=== PATIENT | female | born 1945 | race Caucasian/White ===

== ENCOUNTER 2023-11-02 15:01 | Emergency (ER) | payer MEDICARE, OTHER, SELFPAY ==
[2023-11-02] VITALS (7 sets, daily range): BP systolic 153–169; BP diastolic 75–100; BMI 24.2
--- NOTE | 2023-11-02 15:07 | ED.GENMED ---
History of Present Illness
General
Chief Complaint: Abdominal Symptoms
Time Seen by Provider: 11/02/23 15:07
History of Present Illness
History of Present Illness:
HPI: Patient sent by Dr. Richardson for evaluation. See note below. The patient currently has no complaints and feels 'fine'. She denies vomiting. However she clearly is a limited/unreliable historian.
EXAM:
GENERAL: The patient appears generally weak and debilitated
HEENT: Slightly dry oral mucosa
CARDIOVASCULAR: No murmurs, normal heart rate and rhythm, No chest wall tenderness
PULMONARY: No respiratory distress, breath sounds are clear and equal
ABDOMEN: Soft with no peritoneal signs, no significant tenderness, feeding tube noted
NEUROLOGIC: Equally poor strength all extremities, she is awake with eyes open
PSYCHIATRIC: The patient has limited insight and judgment and is an unreliable historian
EXTREMITIES: Nontender, no edema, markedly decreased ranked in the lower extremities with chronic appearing deformity at the ankles bilaterally
SKIN: Scattered macules noted more so around the face
ED COURSE:
3:20 PM: I initially evaluated patient
NUMBER AND COMPLEXITY OF PROBLEMS ADDRESSED AT THE ENCOUNTER
� Chronic conditions affecting care: Hemorrhagic CVA with left-sided hemiplegia, A-fib, high blood pressure, dysphagia/has feeding tube, history of alcoholic gastritis
� Acute Exacerbation and/or Progression of Chronic Illness: This is an acute problem
� Differential Diagnosis includes: Bowel obstruction, viral syndrome, pancreatitis, exacerbation of gastritis
AMOUNT AND/OR COMPLEXITY OF DATA TO BE REVIEWED AND ANALYZED
� I performed an independent evaluation of and my interpretation is:
EKG:
CT: CT imaging shows signs of constipation, feeding tube in place, pleural effusion noted
X-rays:
Laboratory Studies: Sodium today is improved to 134, white count 12.9
Other:
� Review of other/old records: The patient was here in 2019 with a elbow fracture
� Clinical information was obtained by an independent historian: Dr. Richardson
� Prescriptions/Medications Considered but not given:
� Further testing considered but not performed:
RISK OF COMPLICATIONS AND/OR MORBIDITY OR MORTALITY OF PATIENT MANAGEMENT
� Social determinants of health affecting care: Comes in from [facility]
� Discussion with other providers: I reviewed the note from Dr. Balta Richardson evaluated patient at [place]. She had retching after abdominal palpation today. She recently was on hydrochlorothiazide but was stopped due to
hyponatremia. I also notified Dr. Richardson about the workup today
� Escalation of care including admission/observation vs risk of discharge considered: The patient appears chronically ill. She did not have any significant tenderness on my initial evaluation. As I attempted to roll her to do a
rectal examination for evaluation of rectal fecal impaction, she did spontaneously have a bowel movement
Past History
Past History
ED Past Medical History: CAD
Phy Exam
Physical Exam
Physical Exam:
See HPI
Course
Orders/Labs/Results
Orders:
Orders
11/02/23 15:12
0.9% Sodium Chloride 500 ml [Nss] 500 ml IV BOLUS
11/02/23 15:23
Complete Blood Count/With Diff Urgent
Comprehensive Metabolic Panel Urgent
Lipase Urgent
11/02/23 15:27
CT Abd/pelvis W Iv Cont Urgent
Comment:
Reason For Exam: abd pain resolved vomiting
11/02/23 15:31
Famotidine [Pepcid] 20 mg IV NOW STA
Abnormal Lab Results
11/02/23
15:23
WBC 12.9 H 10^3/uL
(4.8-10.8)
MCV 79.6 L fL
(81.0-99.0)
MCH 26.7 L pg
(27.0-31.0)
RDW 18.9 H %
(11.5-14.5)
Abs Immat Gran (auto) 0.1 H 10^3/uL
(0-0.05)
Absolute Neuts (auto) 10.1 H 10^3/uL
(1.4-6.5)
Absolute Monos (auto) 0.9 H 10^3/uL
(0.1-0.6)
Neutrophils % 78.4 H %
(42.2-75.2)
Lymphocytes % 12.4 L %
(20.5-51.1)
Sodium 134 L mmol/L
(135-145)
Creatinine 0.4 L mg/dL
(0.6-1.0)
Alkaline Phosphatase 151 H U/L
(38-126)
11/02/23 15:23
11/02/23 15:23
Vital Signs
Initial and Last Documented VS:
Initial Vital Signs
Temp Pulse Resp BP Pulse Ox
100.2 F 91 24 169/91 95
11/02/23 15:09 11/02/23 15:09 11/02/23 15:09 11/02/23 15:09 11/02/23 15:09
Last Documented Vital Signs
Temp Pulse Resp BP Pulse Ox
100.2 F 89 23 161/86 97
11/02/23 15:09 11/02/23 18:15 11/02/23 18:15 11/02/23 18:00 11/02/23 18:15
*Critical Care Note
Total Time (30-74mins, 75-104mins- exclusive of procedures): Not Applicable
ED Attending Note
-
Portions of this chart may have been created with voice recognition software.� Occasional wrong word or��sound alike� substitutions may have occurred due to the inherent limitations of voice recognition software.
Discharge Plan
Departure
Patient Disposition: Home (Routine Discharge)
Date of Disposition: 11/02/23
Time of Disposition: 18:38
Patient with high blood pressure during this ER visit?: Yes
Discharge Problem:
Constipation
Instructions: Constipation, Adult (DC)
Referrals:
Balta Richardson MD [Family Provider] -
Activity Restrictions/Additional Instructions:
The CAT scan of the abdomen and pelvis showed constipation and showed that the G-tube is in place. She did have a bowel movement while in the ED while I attempted to disimpact her. Sodium level is improved now up to 134. White count slightly
elevated 12.9.
Interventions
Interventions:
*Risk Screen - Suicide Last Done: 11/02/23 17:07
*General Assessment Last Done: 11/02/23 17:07
*Neglect/Abuse Screening Last Done: 11/02/23 17:07
*ED COVID-19 Vaccine History Last Done: 11/02/23 15:17
DT-Dgbike-Peeyuvdgxd Assessment Last Done: 11/02/23 17:07
[2023-11-02] MEDS: NSS 500 IV (15:24)
[2023-11-02 15:33] LABS: % Basophils 0.6 % (0-2); % Eosinophils 1.6 % (0-6); % Immature Granulocytes 0.4 % (0-0.5); % Lymphocytes 12.4 % (20.5-51.1); % Monocytes 6.6 % (1.7-9.3); % Neutrophils 78.4 % (42.2-75.2); Absolute Basophils 0.1 10^3/uL (0-0.2); Absolute Eosinophils 0.2 10^3/uL (0-0.7); Absolute Immature Granulocytes 0.1 10^3/uL (0-0.05); Absolute Lymphocytes 1.6 10^3/uL (1.2-3.4); Absolute Monocytes 0.9 10^3/uL (0.1-0.6); Absolute Neutrophils 10.1 10^3/uL (1.4-6.5); Hematocrit 42.9 % (37.0-47.0); Hemoglobin 14.4 g/dL (12.0-16.0); Mean Corp Hgb Conc. 33.6 g/dL (33.0-37.0); Mean Corpuscular Hgb 26.7 pg (27.0-31.0); Mean Corpuscular Volume 79.6 fL (81.0-99.0); Mean Platelet Volume 9.6 fL (7.4-10.4); Nucleated Red Blood Cells % 0 %; Platelet Count 360 10^3/uL (130-400); Red Blood Cell Count 5.39 10^6/uL (4.20-5.40); Red Cell Dist. Width 18.9 % (11.5-14.5); White Blood Cell Count 12.9 10^3/uL (4.8-10.8)
[2023-11-02 15:44] LABS: ALT (SGPT) 20 U/L (0-35); AST (SGOT) 26 U/L (14-36); Albumin 3.9 g/dl (3.5-5.0); Alkaline Phosphatase 151 U/L (38-126); Blood Urea Nitrogen 14 mg/dl (7-17); Calcium 9.7 mg/dl (8.4-10.2); Carbon Dioxide 29 mmol/L (22-30); Chloride 98 mmol/L (98-107); Estimated Creatinine Clearance 59 ml/min; Glucose 73 mg/dl (70-99); Lipase 151 U/L (23-300); Potassium 4.1 mmol/L (3.5-5.1); Sodium 134 mmol/L (135-145); Total Bilirubin 0.9 mg/dl (0.2-1.3); Total Protein 7.4 g/dl (6.3-8.2); eGFR > 60.00
[2023-11-02] MEDS: PEPCID 20 MG IV (17:02)
== END 2023-11-02 21:51 | disposition home or self-care (01) ==
LOC: EMR 15:01
PROVIDERS: EMERGENCY PHYSICIAN Emergency Medicine; FAMILY PHYSICIAN Family Medicine
DX: K59.00 Constipation, unspecified (principal); I48.91 Unspecified atrial fibrillation; R03.0 Elevated blood-pressure reading, without diagnosis of hypertension
CPT/HCPCS: 99285; 96374; 96361; 74177; 80053; 83690; 85025; Q9967

== ENCOUNTER → 2023-11-17 13:22 | Outpatient (REF) | payer MEDICARE, OTHER, SELFPAY ==
[2023-11-17 13:54] LABS: Blood Urea Nitrogen 18 mg/dl (7-17); Calcium 9.1 mg/dl (8.4-10.2); Carbon Dioxide 28 mmol/L (22-30); Chloride 95 mmol/L (98-107); Glucose 94 mg/dl (70-99); Potassium 4.6 mmol/L (3.5-5.1); Sodium 132 mmol/L (135-145); eGFR > 60.00
== END ==
LOC: OLABWHC 13:22
PROVIDERS: ATTENDING PHYSICIAN Family Medicine
DX: E44.0 Moderate protein-calorie malnutrition (principal); E63.9 Nutritional deficiency, unspecified
CPT/HCPCS: 36415; 80048

== ENCOUNTER → 2023-12-15 13:05 | Outpatient (REF) | payer MEDICARE, OTHER, SELFPAY ==
[2023-12-15 13:56] LABS: Hematocrit 41.1 % (37.0-47.0); Hemoglobin 13.6 g/dL (12.0-16.0); Mean Corp Hgb Conc. 33.1 g/dL (33.0-37.0); Mean Corpuscular Hgb 27.3 pg (27.0-31.0); Mean Corpuscular Volume 82.4 fL (81.0-99.0); Mean Platelet Volume 11.2 fL (7.4-10.4); Platelet Count 346 10^3/uL (130-400); Red Blood Cell Count 4.99 10^6/uL (4.20-5.40); Red Cell Dist. Width 17.1 % (11.5-14.5); White Blood Cell Count 11.2 10^3/uL (4.8-10.8)
[2023-12-15 14:15] LABS: NT-proBNP 1490 pg/ml
[2023-12-15 14:18] LABS: Blood Urea Nitrogen 21 mg/dl (7-17); Calcium 9.1 mg/dl (8.4-10.2); Carbon Dioxide 24 mmol/L (22-30); Chloride 100 mmol/L (98-107); Glucose 75 mg/dl (70-99); Potassium 4.9 mmol/L (3.5-5.1); Sodium 131 mmol/L (135-145); eGFR > 60.00
== END ==
LOC: OLABWHC 13:05
PROVIDERS: ATTENDING PHYSICIAN Family Medicine
DX: I50.9 Heart failure, unspecified (principal)
CPT/HCPCS: 36415; 80048; 83880; 85027

== ENCOUNTER → 2023-12-25 11:33 | Outpatient (REF) | payer MEDICARE, OTHER, SELFPAY ==
[2023-12-25 12:27] LABS: Hematocrit 43.2 % (37.0-47.0); Hemoglobin 13.9 g/dL (12.0-16.0); Mean Corp Hgb Conc. 32.2 g/dL (33.0-37.0); Mean Corpuscular Volume 86.9 fL (81.0-99.0); Mean Platelet Volume 11.1 fL (7.4-10.4); Platelet Count 334 10^3/uL (130-400); Red Blood Cell Count 4.97 10^6/uL (4.20-5.40); Red Cell Dist. Width 16.6 % (11.5-14.5); White Blood Cell Count 10.8 10^3/uL (4.8-10.8)
[2023-12-25 13:02] LABS: Blood Urea Nitrogen 19 mg/dl (7-17); Carbon Dioxide 27 mmol/L (22-30); Chloride 100 mmol/L (98-107); Glucose 85 mg/dl (70-99); Potassium 4.1 mmol/L (3.5-5.1); Sodium 133 mmol/L (135-145); eGFR > 60.00
== END ==
LOC: OLABWHC 11:33
PROVIDERS: ATTENDING PHYSICIAN Family Medicine
DX: E44.0 Moderate protein-calorie malnutrition (principal); G93.40 Encephalopathy, unspecified; E63.9 Nutritional deficiency, unspecified
CPT/HCPCS: 36415; 80048; 85027

== ENCOUNTER → 2023-12-29 10:56 | Outpatient (REF) | payer MEDICARE, OTHER, SELFPAY ==
[2023-12-29 11:26] LABS: Blood Urea Nitrogen 19 mg/dl (7-17); Carbon Dioxide 29 mmol/L (22-30); Chloride 96 mmol/L (98-107); Glucose 78 mg/dl (70-99); Lipase 138 U/L (23-300); Potassium 4.3 mmol/L (3.5-5.1); Sodium 132 mmol/L (135-145); eGFR > 60.00
== END ==
LOC: OLABWHC 10:56
PROVIDERS: ATTENDING PHYSICIAN Family Medicine
DX: I50.9 Heart failure, unspecified (principal); K21.00 Gastro-esophageal reflux disease with esophagitis, without bleeding
CPT/HCPCS: 36415; 80048; 83690

== ENCOUNTER → 2024-01-16 15:36 | Outpatient (REF) | payer MEDICARE, OTHER, SELFPAY ==
[2024-01-16 15:54] LABS: Hematocrit 45.7 % (37.0-47.0); Hemoglobin 15.2 g/dL (12.0-16.0); Mean Corp Hgb Conc. 33.3 g/dL (33.0-37.0); Mean Corpuscular Hgb 27.8 pg (27.0-31.0); Mean Corpuscular Volume 83.5 fL (81.0-99.0); Mean Platelet Volume 10.9 fL (7.4-10.4); Platelet Count 246 10^3/uL (130-400); Red Blood Cell Count 5.47 10^6/uL (4.20-5.40); Red Cell Dist. Width 15.8 % (11.5-14.5); White Blood Cell Count 6.8 10^3/uL (4.8-10.8)
== END ==
LOC: OLABWHC 15:36
PROVIDERS: ATTENDING PHYSICIAN Family Medicine
DX: I10 Essential (primary) hypertension (principal); I50.9 Heart failure, unspecified; J91.8 Pleural effusion in other conditions classified elsewhere; I48.20 Chronic atrial fibrillation, unspecified
CPT/HCPCS: 36415; 85027

== ENCOUNTER 2024-01-17 21:04 | Inpatient (IN) | payer MEDICARE, OTHER, SELFPAY ==
[2024-01-17 18:49] VITALS: BP 142/91
[2024-01-17 19:00] VITALS: BP 153/95
[2024-01-17 19:14] LABS: % Basophils 0.4 % (0-2); % Immature Granulocytes 0.4 % (0-0.5); % Lymphocytes 4.9 % (20.5-51.1); % Monocytes 7.1 % (1.7-9.3); % Neutrophils 87.2 % (42.2-75.2); Absolute Basophils 0.1 10^3/uL (0-0.2); Absolute Immature Granulocytes 0.1 10^3/uL (0-0.05); Absolute Lymphocytes 0.7 10^3/uL (1.2-3.4); Absolute Neutrophils 12.6 10^3/uL (1.4-6.5); Hematocrit 43.6 % (37.0-47.0); Hemoglobin 14.6 g/dL (12.0-16.0); Mean Corp Hgb Conc. 33.5 g/dL (33.0-37.0); Mean Corpuscular Hgb 27.4 pg (27.0-31.0); Mean Corpuscular Volume 81.8 fL (81.0-99.0); Nucleated Red Blood Cells % 0 %; Platelet Count 259 10^3/uL (130-400); Red Blood Cell Count 5.33 10^6/uL (4.20-5.40); Red Cell Dist. Width 15.5 % (11.5-14.5); White Blood Cell Count 14.5 10^3/uL (4.8-10.8)
--- NOTE | 2024-01-17 19:21 | ED.GENMED ---
History of Present Illness
General
Chief Complaint: Breathing Problem
Source: records, ambulance crew, longterm and longterm records
Exam Limitations: dementia
Time Seen by Provider: 01/17/24 19:06
Nursing documentation reviewed up to this point in time: agreed with
Travel History
Have you had any contact with someone who has COVID-19?: Unable to Answer
Do you have any symptoms of coronavirus? Fever > 100 degrees, chills, cough, shortness of breath, sore throat, loss of taste or smell, muscle aches, or headache?: Unable to Answer
History of Present Illness
History of Present Illness:
78-year-old female with a past medical history of hypertension, hyperlipidemia, atrial fibrillation, stroke with residual hemiplegia presents to the emergency room from [facility] via EMS for evaluation of respiratory distress. Patient
is unable to meaningfully participate in history due to her baseline functional status�she is not answering any questions at present. All of history obtained from EMS, discussion with longterm staff, review of longterm notes. Apparently
over the past 2 to 3 days patient has had increased congestion, cough and some breathing difficulties. Yesterday had some mild hypoxia and was placed on 2 L nasal cannula. Had a chest x-ray today which apparently showed right lower lobe pneumonia.
This afternoon she received a dose of amoxicillin and azithromycin to treat this pneumonia. This evening patient had some vomiting there was concern for aspiration as she has a history of aspiration in the past and chronic dysphagia. Her
respiratory rate increased to the 30s to 40s she started spiking fever. Breath sounds coarse and there was concern for worsening respiratory status and so she was sent to the emergency room for treatment and evaluation. Patient is a DNR/DNI per
POLST form at bedside.
Past History
Past History
ED Past Medical History: CAD
Review of Systems
Review of Systems
Unable to obtain full review of systems at this time due to: due to acuity
All Other Systems: Not applicable
Phy Exam
Physical Exam
Physical Exam:
General: Awake, chronically ill-appearing and in acute respiratory distress
Head: Normocephalic, atraumatic
Eyes: Conjunctiva normal, EOMI
Throat: Copious mount of mucus/secretions in the upper airway requiring suctioning
Neck: Somewhat contracted towards the left, no JVD
Lungs: Patient has coarse breath sounds bilaterally with rales at the right lung base and a very weak cough; she is tachypneic breathing in the 30s, hypoxic in the low 80s�pulse ox improved to 89% with 6 L nasal cannula
Heart: Reg tachycardia with irregularly irregular rhythm, no murmurs, gallops, or rubs appreciated
Abd: Soft, non distended
Neuro: Somewhat contracted towards the left, no verbal response but alert and tracks with her eyes
Skin: no rash
Extremities: Warm and well-perfused
Scores
Heart Failure Risk
Heart Failure Risk Score: Not Applicable
Heart Score for Chest Pain Patients
STEMI patient?: Not applicable
Withdrawal Assessment of Alcohol
Withdrawal Assessment Completed?: Not applicable
Course
Orders/Labs/Results
Orders:
Orders
01/17/24 19:02
Electrocardiogram (*1) Urgent
Reason for Study: Other
Other Reason for Exam: Possible Sepsis
Cardiac Monitoring- Treatment ONCE
IV Insert/Care/Rem.- Treatment PRN
O2 Therapy [RESP] Urgent
Titrate/Wean O2 to maintain O2 sat greater than (%): 93
Special Instructions: TO MAINTAIN CONTINUOUS O2 SATS > OR = 93%
Pulse Ox/cont/shift [RESP] Urgent
Quantity: 1
Special Instructions: CONTINUOUS
01/17/24 19:03
EKG- Treatment ONCE
01/17/24 19:05
Comprehensive Metabolic Panel Urgent
Blood Culture Q30M
OUMAR Source: Blood/Venous
Specimen Description:
Comment: FROM 2 SEPARATE SITES
01/17/24 19:06
Complete Blood Count/With Diff Urgent
Lactic Acid Q4H
Comment: ON ICE, CANCEL 2ND ORDER IF FIRST LACTIC ACID LEVEL <2
Blood Culture Q30M
OUMAR Source: Blood/Venous
Specimen Description:
Comment: FROM 2 SEPARATE SITES
01/17/24 19:07
Acetaminophen [Tylenol] 1,000 mg PO NOW STA
CR Chest Portable - 1 View Urgent
Comment:
Reason For Exam: sob, fever
Reason Study Needs to be Portable: Unable to Transport
01/17/24 19:20
Acetaminophen [Tylenol/Feverall] 650 mg RECTAL NOW STA
Vancomycin 1500 mg IVPB NOW Vancomycin [Vancocin] 1,500 mg 0.9% Sodium Chloride [Nss] 20 ml 0.9% Sodium Chloride 250 ml [Nss] 250 ml IV NOW
Zosyn 3.375 grams IVPB NOW Piperacillin/Tazo 3.375 Gram [Zosyn] 3.375 gram in 50 ml IV NOW
01/17/24 23:15
Lactic Acid Q4H
Comment: ON ICE, CANCEL 2ND ORDER IF FIRST LACTIC ACID LEVEL <2
Abnormal Lab Results
01/17/24
19:06
WBC 14.5 H 10^3/uL
(4.8-10.8)
RDW 15.5 H %
(11.5-14.5)
Abs Immat Gran (auto) 0.1 H 10^3/uL
(0-0.05)
Absolute Neuts (auto) 12.6 H 10^3/uL
(1.4-6.5)
Absolute Lymphs (auto) 0.7 L 10^3/uL
(1.2-3.4)
Absolute Monos (auto) 1.0 H 10^3/uL
(0.1-0.6)
Neutrophils % 87.2 H %
(42.2-75.2)
Lymphocytes % 4.9 L %
(20.5-51.1)
01/17/24 19:06
Vital Signs
Initial and Last Documented VS:
Initial Vital Signs
Pulse Resp
113 19
01/17/24 18:48 01/17/24 18:48
Last Documented Vital Signs
Temp Pulse Resp BP Pulse Ox
40 C H 106 24 153/95 93
01/17/24 18:49 01/17/24 19:00 01/17/24 19:00 01/17/24 19:00 01/17/24 19:00
MDM/Problems Addressed
Differential Diagnosis Includes:
Pneumonia, aspiration pneumonitis, CHF, bronchitis
MDM/Problems Addressed:
78-year-old female presents for evaluation of worsening respiratory status in the setting of pneumonia found on outpatient chest x-ray. She arrives to us tachycardic, tachypneic, hypoxic, febrile, fortunately normotensive. She was placed on 6 L
nasal cannula with some improvement in her oxygenation but still in the high 80s, decision made to place on high flow nasal cannula for better oxygenation; with improvement in oxygenation respiratory rate improved from the 30s down to the mid 20s.
She would not be a good candidate for BiPAP given copious upper airway secretions requiring suction multiple times here. She is currently DNR/DNI. She seems to have stabilized for now on high flow nasal cannula regarding her respiratory status.
Will treat patient's fever with rectal Tylenol. Labs sent off including a CBC and CMP, lactate, blood cultures. Obtain a stat chest x-ray and EKG. Monitor closely reassess after the above.
Labs reviewed: CBC shows a leukocytosis to 14.5. Chest x-ray reviewed independently by me shows a right lower lobe pneumonia. EKG shows A-fib with rate in the low 100s. Hold on diltiazem for now with sepsis to avoid precipitating hypotension;
suspect mildly elevated heart rate will improve with antipyretic. Will cover with vancomycin and Zosyn with concern for aspiration pneumonia. Will admit for continued management of sepsis secondary pneumonia and acute respiratory failure with
hypoxia. Case discussed with hospitalist for admission.
Chronic conditions affecting care:
CVA with hemiplegia and chronic dysphagia presents with likely aspiration pneumonia
*Radiology
Radiology exam reviewed: preliminary read by ED provider
*Pulse Oximetry
Patient hypoxic: yes
*EKG
Interpreted by ED Provider?: Yes
Comparison EKG: no comparison EKG present
Heart Rate: 101
Rate: tachycardiac
Rhythm: a-fib
[place]: normal axis
Interval: normal interval
QRS Pattern: right bundle branch block
Ischemia: non-specific ST changes
*Critical Care Note
Total Time (30-74mins, 75-104mins- exclusive of procedures): 37
comment:
Critical care statement: A total of 37 minutes of critical care time was provided for this patient. This includes management of unstable vital signs, evaluation of the patient at bedside, frequent reassessment, discussion with
consultants/hospitalist, and review of pertinent medical records. This time was separate from time utilized to perform any aforementioned documented procedures
Data Reviewed
Review of Other/Old Records Reveals: Labs and Records
Source: records, ambulance crew, longterm and longterm records
Patient Management
Discussion with other providers: Hospitalist (Discussed with hospitalist)
Escalation/DeEscalation of care consider admission/obs:
Admission indicated
ED Attending Note
-
Portions of this chart may have been created with voice recognition software.� Occasional wrong word or��sound alike� substitutions may have occurred due to the inherent limitations of voice recognition software.
Discharge Plan
Departure
Patient Disposition: Admit
Date of Disposition: 01/17/24
Time of Disposition: 19:33
Admit to doctor: Steven
Presentation/result/management discussed w/ accepting MD/DO: Hospitalist
Discharge Problem:
Sepsis, Pneumonia, Acute respiratory failure
Prescriptions:
No Action
atorvastatin 80 mg Tablet
80 mg feeding tube HS
loratadine 5 mg/5 mL Solution
10 mg FEEDING TUBE DAILY
acetaminophen 160 mg/5 mL Liquid
640 mg feeding tube Q6H PRN (Reason: mild pain/temp>100F)
polyethylene glycol 3350 [Miralax] 17 gram Powder In Packet
17 g feeding tube DAILY PRN (Reason: constipation)
polyethylene glycol 3350 [Miralax] 17 gram Powder In Packet
17 g feeding tube Q48H
melatonin 3 mg Tablet
3 mg feeding tube HS
calcium carbonate 600 mg calcium (1,500 mg) Tablet
600 mg feeding tube DAILY
magnesium hydroxide [Milk of Magnesia] 400 mg/5 mL Suspension
30 ml FEEDING TUBE HS PRN (Reason: if no bm x 2 days)
bisacodyl [Dulcolax (bisacodyl)] 10 mg Suppository
10 mg [place] DAILY PRN (Reason: if no bm x 3 days)
Fleet Enema 19-7 gram/118 mL Enema
118 ml [place] DAILY PRN (Reason: if no bm x 4 days)
gabapentin 300 mg Capsule
300 mg feeding tube TID
nystatin 100,000 unit/gram Powder
1 applic TOPICAL PRN PRN (Reason: redness in groin)
diltiazem HCl 60 mg Tablet
60 mg feeding tube Q8H
amoxicillin-pot clavulanate 875-125 mg Tablet
1 tab FEEDING TUBE BID
ezetimibe [Zetia] 10 mg Tablet
10 mg feeding tube HS
Acidophilus Tablet,Chewable
1 tab feeding tube DAILY
Balmex Ointment
1 ea TOPICAL BID
Patient Comments:
apply to sacrum
levetiracetam 500 mg tablet
500 mg feeding tube Q12H
omeprazole 20 mg capsule
20 mg feeding tube QPM
Interventions
Interventions:
*Risk Screen - Suicide Last Done: 01/17/24 18:49
*General Assessment Last Done: 01/17/24 18:49
*Neglect/Abuse Screening Last Done: 01/17/24 18:49
*ED COVID-19 Vaccine History Last Done: 01/17/24 18:49
ED- Cardiac Assessment Last Done: 01/17/24 18:59
ED- Pulmonary Assessment Last Done: 01/17/24 18:59
Discharge Date and Time
Print Language: LAO
[2024-01-17] MEDS: ZOSYN 50 IV (19:25)
[2024-01-17] MEDS: TYLENOL/FEVERALL 650 MG RECTAL (19:25)
[2024-01-17 19:26] LABS: Lactic Acid 1.8 mmol/L (0.7-2.0)
[2024-01-17 19:46] LABS: ALT (SGPT) 22 U/L (0-35); AST (SGOT) 31 U/L (14-36); Albumin 3.9 g/dl (3.5-5.0); Alkaline Phosphatase 125 U/L (38-126); Blood Urea Nitrogen 22 mg/dl (7-17); Calcium 9.4 mg/dl (8.4-10.2); Carbon Dioxide 28 mmol/L (22-30); Chloride 92 mmol/L (98-107); Estimated Creatinine Clearance 59 ml/min; Glucose 185 mg/dl (70-99); Potassium 3.9 mmol/L (3.5-5.1); Sodium 131 mmol/L (135-145); Total Bilirubin 0.8 mg/dl (0.2-1.3); Total Protein 7.5 g/dl (6.3-8.2); eGFR > 60.00
[2024-01-17 20:00] VITALS: BP 137/85
[2024-01-17] MEDS: VANCOCIN 300 ML IV (20:01)
[2024-01-17] MEDS: VANCOCIN 300 MG IV (20:01)
--- NOTE | 2024-01-17 20:06 | HPS.HSE ---
Family Physician
-
Family Physician:
Chief Complaint
-
SOB
History of Present Illness
Patient is an 78y F with PMH significant for A-Fib, CHF and prior CVA / ICH with aphasia and dysphagia who presents to ED from local ID for evaluation of increased congestion and SOB. History obtained from ID record and ED staff. Patient is
non-verbal which is her apparent baseline. Patient was noted to develop cough and congestion about 2 days ago. Increased nasal / oral secretions and congestion. Had OP CXR which showed R base pneumonia. Today was started on Augmentin 875mg and
azithromycin (one dose of each). She was noted to have increased work of breathing and required oxygen supplementation at the ID and was sent to the ED for further evaluation.
In the ED, patent has fever to 104. She is on high-flow nasal cannula at present with SpO2 > 90%. No oxygen readings noted prior to HFNC.
Medical History
Past Medical History
Past Medical History: Reports Other
Additional Past Medical History:
Intracranial Hemorrhage
Polyneuropathy
Left Hemiparesis and Expressive Aphasia as Late Effect of CVA
Hypertension
Chronic Atrial Fibrillation
Chronic HF- Unknown Type
ASCVD / CVA
Chronic Dysphagia
GERD
Past Surgical History: Reports Other
Additional Past Surgical History:
G-Tube Placement
RAE
Social History
Unable to obtain full social history at this time due to: Patient Non-verbal
Family History
Family History: Unable to Obtain
Allergies / Home Medications
Allergies reflects when Allergies were last updated in [employer].
Home Medications with original date entered in [employer]
Allergy/Medication List:
Allergies
Allergy/AdvReac Type Severity Reaction Status Date / Time
Cephalosporins Allergy Unknown Verified 11/02/23 15:13
Home Medications
Lactobacillus acidophilus (Acidophilus chewable tablet) 1 tab feeding tube DAILY 01/17/24
acetaminophen 160 mg/5 mL oral liquid 640 mg feeding tube Q6H PRN mild pain/temp>100F 01/17/24
amoxicillin 875 mg-potassium clavulanate 125 mg tablet 1 tab feeding tube BID 01/17/24
atorvastatin 80 mg tablet 80 mg feeding tube HS 01/17/24
balsam mahesh-zinc oxide topical ointment 1 ea topical BID 01/17/24
bisacodyl 10 mg rectal suppository (Dulcolax (bisacodyl)) 10 mg [place] DAILY PRN if no bm x 3 days 01/17/24
calcium carbonate 600 mg feeding tube DAILY 01/17/24
diltiazem HCl 60 mg tablet 60 mg feeding tube Q8H 01/17/24
ezetimibe 10 mg tablet (Zetia) 10 mg feeding tube HS 01/17/24
gabapentin 300 mg capsule 300 mg feeding tube TID 01/17/24
levetiracetam 500 mg feeding tube Q12H 01/17/24
loratadine 5 mg/5 mL oral solution 10 mg feeding tube DAILY 01/17/24
magnesium hydroxide 400 mg/5 mL oral suspension (Milk of Magnesia) 30 ml feeding tube HS PRN if no bm x 2 days 01/17/24
melatonin 3 mg tablet 3 mg feeding tube HS 01/17/24
nystatin 100,000 unit/gram topical powder 1 applic topical PRN PRN redness in groin 01/17/24
omeprazole 20 mg feeding tube QPM 01/17/24
polyethylene glycol 3350 17 gram oral powder packet (Miralax) 17 g feeding tube DAILY PRN constipation 01/17/24
polyethylene glycol 3350 17 gram oral powder packet (Miralax) 17 g feeding tube Q48H 01/17/24
sodium phosphates 19 gram-7 gram/118 mL enema (Fleet Enema) 118 ml [place] DAILY PRN if no bm x 4 days 01/17/24
Review of Systems
-
Unable to obtain full review of systems at this time due to: Patient Non-verbal
Physical Exam
Vital Signs
Vital Signs
Temp Pulse Resp BP Pulse Ox
104 F H 106 24 153/95 93
01/17/24 18:49 01/17/24 19:00 01/17/24 19:00 01/17/24 19:00 01/17/24 19:00
Physical Exam
General: Other (78y F in mild distress due to congestion / dyspnea.)
HEENT: Other (HFNC in place. Copious, thick mucoid secretions from nose and mouth.)
Respiratory: Other (Few coarse breath sounds clear with suctioning / weak cough. Decreased at bases. Otherwise clear.)
Cardiac: S1/S2 and Irregular Rhythm; No Murmur
GI: Soft, Non Tender, Non Distended, Normal Bowel Sounds and Other (G-Tube site intact.)
Musculoskeletal: No Clubbing, No Cyanosis and No Edema
Neuro: Other (Awake. Non-verbal as per baseline. L hemiparesis (unchanged). No new focal deficits.)
Laboratory Results
-
01/17/24 19:06
01/17/24 19:05
Laboratory Results
Lactic Acid 1.8 mmol/L (0.7-2.0) 01/17/24 19:06
Total Bilirubin 0.8 mg/dl (0.2-1.3) 01/17/24 19:05
AST 31 U/L (14-36) 01/17/24 19:05
ALT 22 U/L (0-35) 01/17/24 19:05
Alkaline Phosphatase 125 U/L (38-126) 01/17/24 19:05
Impression/Plan
-
A/P: Patient is an 78y F with PMH significant for A-Fib, CHF, HTN and chronic hemiparesis / aphasia / dysphagia s/p prior CVA / ICH who presents to ED for evaluation of apparent dyspnea, hypoxemia, etc.
RLL Pneumonia
Sepsis secondary to the above
Acute Hypoxemic Resp Failure secondary to the above
- Admit for further evaluation and treatment.
- Patient with fever to 104, leukocytosis, tachycardia and clinical / radiographic evidence of pneumonia.
- Life threatening organ dysfunction in the form of acute hypoxemic respiratory failure.
- R base pneumonia on CXR - potentially secondary to aspiration given history / risk factors.
- IV abx with Vanco / Zosyn for now.
- Follow-up culture data and COVID / influenza testing.
- Supportive care including mucolytics, nebs, supplemental O2, etc.
- Follow for clinical improvement.
- Aspiration precautions. Speech therapy evaluation.
ASCVD
History of ICH
Left Hemiparesis / Aphasia / Dysphagia as Late Effect of CVA
- No new focal findings on exam.
- Continue supportive care, aspiration precautions, etc.
- Hold tube feeds acutely.
- Not on antiplatelets / anticoagulation / etc given history of ICH, etc.
Chronic Atrial Fibrillation
- Stable. Heart rates are acceptable around 100 bpm.
- Continue diltiazem with holding parameters.
- Not on chronic OAC as noted above.
Chronic HF- Unknown Type
- Stable. No evidence of volume overload on exam
- No on chronic diuretic therapy.
- Follow I/Os, daily weights, etc.
Seizure Disorder
- Stable. Continue Keppra without changes.
DVT Prophylaxis: SCDs
Code Status: DNR
[2024-01-17 20:19] LABS: COVID-19 Antigen Negative (Negative)
[2024-01-17 21:00] VITALS: BP 92/52
[2024-01-17 22:00] VITALS: BP 119/77
[2024-01-17 23:00] VITALS: BP 107/59
[2024-01-18] VITALS (15 sets, daily range): BP systolic 92–147; BP diastolic 53–102; BMI 23.3
[2024-01-18] MEDS: NEURONTIN 300 MG TUBE ×4 (01:26→21:39)
[2024-01-18] MEDS: LR 1000 IV ×3 (01:27→20:11)
[2024-01-18] MEDS: TYLENOL ORAL SOLUTION 650 MG TUBE (01:29)
[2024-01-18] MEDS: CARDIZEM TUBE (01:33)
[2024-01-18] MEDS: KEPPRA 500 MG TUBE ×3 (01:36→21:39)
[2024-01-18] MEDS: ROBITUSSIN 100 MG PO ×5 (01:36→21:40)
[2024-01-18] MEDS: ZOSYN 50 IV ×4 (01:36→20:06)
--- NOTE | 2024-01-18 02:03 | PTCARENOTE ---
Received pt from ED RN. Pt is nonverbal, hemiplegic, b/l foot drop. Afib on the monitor HR 70s-80s. On highflow 50L 50%, O2 sat 98%, lungs diminished/coarse. Gtube in place for meds. MASD in the groin cream provided. LR infusing @ 100 ml/hr. Rectal
temp of 100.9, PRN Tylenol given (see MAR). CHG bath and mouth care provided. Pt is laying in bed with call vail in reach.
[2024-01-18 04:14] LABS: Hematocrit 40.8 % (37.0-47.0); Hemoglobin 13.2 g/dL (12.0-16.0); Mean Corp Hgb Conc. 32.4 g/dL (33.0-37.0); Mean Corpuscular Hgb 27.4 pg (27.0-31.0); Mean Corpuscular Volume 84.8 fL (81.0-99.0); Mean Platelet Volume 10.8 fL (7.4-10.4); Platelet Count 218 10^3/uL (130-400); Red Blood Cell Count 4.81 10^6/uL (4.20-5.40); Red Cell Dist. Width 15.5 % (11.5-14.5); White Blood Cell Count 11.5 10^3/uL (4.8-10.8)
[2024-01-18 04:41] LABS: ALT (SGPT) 16 U/L (0-35); AST (SGOT) 24 U/L (14-36); Albumin 2.9 g/dl (3.5-5.0); Alkaline Phosphatase 93 U/L (38-126); Blood Urea Nitrogen 23 mg/dl (7-17); Carbon Dioxide 28 mmol/L (22-30); Chloride 96 mmol/L (98-107); Direct Bilirubin 0.4 mg/dl (0.0-0.4); Estimated Creatinine Clearance 62 ml/min; Glucose 128 mg/dl (70-99); Potassium 3.8 mmol/L (3.5-5.1); Sodium 134 mmol/L (135-145); Total Bilirubin 0.8 mg/dl (0.2-1.3); eGFR > 60.00
[2024-01-18] MEDS: PROTONIX IV 40 MG IV (07:48)
[2024-01-18] MEDS: CARDIZEM 60 MG TUBE ×2 (08:04→15:20)
--- NOTE | 2024-01-18 08:07 | PHA.VAN.IN ---
Assessment
- Assessment
Renal Function: Appears similar to baseline
Concomitant Antimicrobials: piperacillin/tazobactam
AUC Dosing Plan
- Dosing Variables
Dosing Weight (kg): 60
Dosing CrCl (ml/min): 62
Vd coefficient (L/kg): 0.7
- Empiric Dosing
Initial / Loading Dose: 1500mg - 01/16 20:01
Maintenance Regimen: Vanc 1250mg Q24H starting at noon today then 0600
Estimated AUC (mcg*h/mL): 555
Estimated Peak (mcg*h/mL): 40.3
Estimated Trough (mcg/ml): 11.5
Estimated Half Life (H): 12.4
- Monitoring
No levels ordered at this time: consider levels in next few days
Pharmacokinetics Vancomycin I
- -
Patient Age: 78
Patient Sex: Female
Vancomycin Day #: 1
Indication: Pulmonary/Respiratory
Requesting Provider: Dr. Harris
Pertinent Antimicrobial Allergies:
cephalosporins - unknown
Height / Weight:
Height 5 ft 3 in
Actual Weight 59.7 kg
- Vital Signs / Lab Results
Temp Pulse Resp BP Pulse Ox
98.2 F 67 20 131/82 99
01/18/24 04:17 01/18/24 08:04 01/18/24 06:13 01/18/24 08:04 01/18/24 06:13
Lab Results - Hematology
01/17/24 01/18/24
19:06 04:00
WBC 14.5 H 11.5 H
Lab Results - Chemistry
01/17/24 01/18/24
19:05 04:00
BUN 22 H 23 H
Creatinine 0.3 L 0.4 L
Estimated Creat Clear 59 62
Albumin 3.9 2.9 L
01/17/24 01/17/24
19:06 23:15
Lactic Acid 1.8 Cancelled
Microbiology Results
01/17/24 19:52 Influenza Types A & B (JACQUELINE) - Final
Nasal Swab Negative for Influenza A & B, NAAT
Negative results must be combined with clinical observations
and patient history.
Nucleic Acid Amplification test (NAAT)performed on the
[employer] platform.
--- NOTE | 2024-01-18 09:34 | W.PN.HOSP.TC ---
Today's Communication/Plan
-
cont abx
if pt remains sleepy, arousable to pain only, consider head CT
Assessment / Plan
Assessment / Plan
pt is an 78 year old female
sepsis due to RLL Pneumonia/acute hypoxemic resp failure/acute TME--cont vanco/zosyn--off HI SOCO and now on 4L--cont to wean--treat fevers--COVID and flu neg--Aspiration precautions. Speech therapy evaluation.
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
Chronic Atrial Fibrillation -Continue diltiazem with holding parameters -Not on chronic OAC as noted above.
Chronic HF- Unknown Type-Stable. No evidence of volume overload on exam-No on chronic diuretic therapy-Follow I/Os, daily weights, etc.
Seizure Disorder- Stable-Continue Keppra without changes.
DVT Prophylaxis: SCDs
Code Status: DNR
Anticipated Discharge: 24 - 48 hours
Subjective/Interval History
-
Date of Service: January 18, 2024
pt nonverbal--arouses to painful stimuli
Objective Data
-
Labs:
Laboratory Results
01/18/24
04:00
WBC 11.5 H
Hgb 13.2
Hct 40.8
Plt Count 218
Sodium 134 L
Potassium 3.8
Chloride 96 L
Carbon Dioxide 28
BUN 23 H
Creatinine 0.4 L
Glucose 128 H
Calcium 9.0
Total Bilirubin 0.8
AST 24
ALT 16
Alkaline Phosphatase 93
Vital Signs:
max temp for 24 hours
01/17/24
18:49
Temp 104 F H
Vital Signs
Temp Pulse Resp BP Pulse Ox
97.8 F 67 20 131/82 99
01/18/24 07:00 01/18/24 08:04 01/18/24 06:13 01/18/24 08:04 01/18/24 08:19
I&O
01/17/24 01/18/24 01/19/24
06:59 06:59 06:59
Intake Total 600 / 600
Balance 600 / 600
Review of Systems
-
Unable to obtain full review of systems at this time due to: Patient Non-verbal
Physical Exam
-
General: Well Developed, Well Nourished and No Apparent Distress
HEENT: Normocephalic and Atraumatic
Respiratory: Clear to Auscultation; Negative Wheezes or Rhonchi
Cardiac: Regular Rhythm and S1/S2; Negative Murmur
GI: Soft, Nontender, Nondistended, Normal Bowel Sounds and Peg Tube
Musculoskeletal: No Clubbing, No Cyanosis and No Edema
Neuro: Negative Awake, Alert or Sedated
[2024-01-18] MEDS: VANCOCIN 275 MG IV (11:10)
--- NOTE | 2024-01-18 13:47 | PTCARENOTE ---
RN spoke with Marilyn Saunders RN verbalized patient is nonverbal at baseline but makes contact with eyes and can answer yes/no question.Patient stays awake during the day and watches TV. Patient is a total assist incont. of bowel and bladder.
NPO, bolus tube feeds. 2LNC was placed prior to arrival to hospital due to SOB. Patient with a HX of left sided paralysis and aphagia.
--- NOTE | 2024-01-18 13:51 | CM ---
Patient from [facility] with Dx sepsis due to RLL Pneumonia/acute hypoxemic resp failure/acute TME. Hi flow O2. Unresponsive per nurse. Receiving IVF/IV Abx.
Spoke with Suze, [facility]; the patient resides there in LTC and is private pay. She has been alert, is able to make her needs known but has expressive aphasia. The patient is fed through her G-tube. She requires assist of 2, moise lift
is used for bed mobility and transfers to w/c. The patient is dependent for her mobility and non-ambulatory.
CM continuing to follow.
Plan possible return to [facility].
--- NOTE | 2024-01-18 22:53 | PTCARENOTE ---
Received pt at start of shift. aaox2, having conversations & states her needs. afib on monitor. Remains on 6LNC. Q2T. Took pt down for her head CT for precaution even though pt seems to have returned to baseline. J tube in place, flushing fine but
it is very dark brown in color & odor. SCDs. No other issues at this time. Will continue to monitor.
[2024-01-19] VITALS (12 sets, daily range): BP systolic 122–165; BP diastolic 72–112; BMI 24.2
[2024-01-19] MEDS: CARDIZEM 60 MG TUBE ×3 (00:39→17:01)
[2024-01-19] MEDS: ZOSYN 50 IV ×4 (01:05→19:29)
[2024-01-19] MEDS: VANCOCIN 275 MG IV (05:29)
[2024-01-19 06:00] LABS: Hematocrit 45.2 % (37.0-47.0); Mean Corp Hgb Conc. 33.2 g/dL (33.0-37.0); Mean Corpuscular Volume 81.4 fL (81.0-99.0); Mean Platelet Volume 10.4 fL (7.4-10.4); Platelet Count 210 10^3/uL (130-400); Red Blood Cell Count 5.55 10^6/uL (4.20-5.40); Red Cell Dist. Width 15.5 % (11.5-14.5); White Blood Cell Count 8.4 10^3/uL (4.8-10.8)
[2024-01-19 06:38] LABS: ALT (SGPT) 19 U/L (0-35); AST (SGOT) 34 U/L (14-36); Albumin 3.7 g/dl (3.5-5.0); Alkaline Phosphatase 115 U/L (38-126); Blood Urea Nitrogen 17 mg/dl (7-17); Calcium 9.5 mg/dl (8.4-10.2); Carbon Dioxide 23 mmol/L (22-30); Chloride 102 mmol/L (98-107); Estimated Creatinine Clearance 62 ml/min; Glucose 70 mg/dl (70-99); Magnesium 1.8 mg/dl (1.6-2.3); Potassium 3.9 mmol/L (3.5-5.1); Sodium 135 mmol/L (135-145); Total Bilirubin 1.2 mg/dl (0.2-1.3); Total Protein 7.3 g/dl (6.3-8.2); eGFR > 60.00
--- NOTE | 2024-01-19 08:06 | PHA.VAN.FU ---
Vancomycin Assessment / Plan
- Assessment
Renal Function: Stable
WBC's are: WNL
Concomitant Antimicrobials: piperacillin/tazobactam
- Dosing Plan
Continue: Vanc 1250mg Q24H
- Monitoring Plan
No level(s) ordered at this time: consider levels in next few days
- Follow Up
Pharmacy will continue to follow.
Vancomycin Follow UP
- -
Patient Age: 78
Patient Sex: Female
Vancomycin Day #: 2
Indication: Pulmonary/Respiratory
Requesting Provider: Dr. Harris
Pertinent Antimicrobial Allergies:
cephalosporins - unknown
Height / Weight:
Height 5 ft 3 in
Actual Weight 61.9 kg
- Vital Signs / Lab Results
Temp Pulse Resp BP Pulse Ox
96.3 F L 82 19 141/112 99
01/19/24 03:50 01/19/24 06:00 01/19/24 06:00 01/19/24 06:00 01/19/24 06:00
Lab Results - Hematology
01/17/24 01/18/24 01/19/24
19:06 04:00 05:44
WBC 14.5 H 11.5 H 8.4
Lab Results - Chemistry
01/17/24 01/18/24 01/19/24
19:05 04:00 05:44
BUN 22 H 23 H 17
Creatinine 0.3 L 0.4 L 0.3 L
Estimated Creat Clear 59 62 62
Albumin 3.9 2.9 L 3.7
01/17/24 01/17/24
19:06 23:15
Lactic Acid 1.8 Cancelled
Microbiology Results
01/17/24 19:05 Blood Culture - Preliminary
Blood/Venous No Growth in 24 hours- Final report to follow
01/17/24 19:06 Blood Culture - Preliminary
Blood/Venous No Growth in 24 hours- Final report to follow
01/17/24 19:52 Influenza Types A & B (JACQUELINE) - Final
Nasal Swab Negative for Influenza A & B, NAAT
Negative results must be combined with clinical observations
and patient history.
Nucleic Acid Amplification test (NAAT)performed on the
[employer] platform.
[2024-01-19] MEDS: NSS (PRESERVATIVE FREE) 10 ML IV (08:31)
[2024-01-19] MEDS: PROTONIX IV 40 MG IV (08:32)
[2024-01-19] MEDS: LR 1000 IV (08:32)
[2024-01-19] MEDS: ROBITUSSIN 100 MG PO ×4 (08:33→21:10)
[2024-01-19] MEDS: NEURONTIN 300 MG TUBE ×3 (08:35→21:10)
--- NOTE | 2024-01-19 09:00 | PTCARENOTE ---
Patient received from manager shift. Patient resting comfortably in bed. AAOx2, VSS. No events noted overnight. No complaints of pain or any grimacing. LR @ 100mL/hr, continuing IV ABX. J-tube for medications. Call vail in reach.
[2024-01-19] MEDS: KEPPRA 500 MG TUBE ×2 (10:48→21:10)
--- NOTE | 2024-01-19 11:07 | W.PN.HOSP.TC ---
Addendum entered and electronically signed by Brandon Lou MD 01/19/24 16:33:
Updated daughter over the phone in details.
Original Note:
Today's Communication/Plan
-
Follow culture data
Wean oxygen as tolerated
Start tube feeding
Can stop IV fluids once tolerating tube feeds
Assessment / Plan
Assessment / Plan
pt is an 78 year old female
sepsis due to RLL Pneumonia/acute hypoxemic resp failure/acute TME--cont vanco/zosyn--off HI SOCO and now on 4L--cont to wean--treat fevers--COVID and flu neg--Aspiration precautions. Speech therapy evaluation.
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 CT head with encephalomalacia in the right frontal lobe likely due to
old infarct. Severe periventricular small vessel disease. Severe atrophy.
Gram-positive bacteremia-with GPC. Likely contaminant already on antibiotic. Follow culture data.
Chronic Atrial Fibrillation -Continue diltiazem with holding parameters -Not on chronic OAC as noted above.
Chronic HF- Unknown Type-Stable. No evidence of volume overload on exam-No on chronic diuretic therapy-Follow I/Os, daily weights, etc.
Seizure Disorder- Stable-Continue Keppra without changes.
DVT Prophylaxis: SCDs
Code Status: DNR
Anticipated Discharge: > 48 hours
Subjective/Interval History
-
Date of Service: January 19, 2024
Patient awake and following commands
Remains on oxygen
Objective Data
-
Labs:
Laboratory Results
01/19/24
05:44
WBC 8.4
Hgb 15.0
Hct 45.2
Plt Count 210
Sodium 135
Potassium 3.9
Chloride 102
Carbon Dioxide 23
BUN 17
Creatinine 0.3 L
Glucose 70
Calcium 9.5
Total Bilirubin 1.2
AST 34
ALT 19
Alkaline Phosphatase 115
Vital Signs:
Vital Signs
Temp Pulse Resp BP Pulse Ox
97.5 F 78 19 153/107 99
01/19/24 07:55 01/19/24 08:33 01/19/24 06:00 01/19/24 08:33 01/19/24 06:00
I&O
01/18/24 01/19/24 01/20/24
06:59 06:59 06:59
Intake Total 600 / 600 1575 / 1575
Balance 600 / 600 1575 / 1575
Physical Exam
-
General: Well Developed, Well Nourished and No Apparent Distress
HEENT: Normocephalic, Atraumatic and Oxygen
Respiratory: Wheezes; Negative Rhonchi
Cardiac: Regular Rhythm and S1/S2; Negative Murmur
GI: Soft, Nontender, Nondistended, Normal Bowel Sounds and Peg Tube
Musculoskeletal: No Clubbing, No Cyanosis and No Edema
Neuro: Awake; Negative Sedated
Psych: Calm
Data Reviewed
-
Total Time Spent with Patient (in minutes): 55
--- NOTE | 2024-01-19 16:56 | CM ---
Patient from [facility] with Dx sepsis due to RLL Pneumonia/acute hypoxemic resp failure/acute TME. O2 6L. PEG - Jevity tube feeds. Per nurse assessment; confused.
CM continuing to follow.
Plan contact daughter about return to [facility].
[2024-01-19] MEDS: LR IV (17:08)
[2024-01-20] VITALS (12 sets, daily range): BP systolic 143–171; BP diastolic 77–100; BMI 24.3
--- NOTE | 2024-01-20 00:43 | PTCARENOTE ---
Received pt at start of shift. aaox2, mentation the same as the other night. No change in assessment from previous shift. Afib on monitor. Tube feedings running now at 40ml/hr. tolerating well. Q2T. No other issues at this time. Will monitor.
[2024-01-20] MEDS: CARDIZEM 60 MG TUBE ×4 (00:51→23:57)
[2024-01-20] MEDS: ZOSYN 50 IV ×4 (02:58→20:23)
[2024-01-20 04:57] LABS: % Basophils 0.7 % (0-2); % Eosinophils 1.8 % (0-6); % Immature Granulocytes 0.4 % (0-0.5); % Lymphocytes 15.6 % (20.5-51.1); % Monocytes 7.8 % (1.7-9.3); % Neutrophils 73.7 % (42.2-75.2); Absolute Basophils 0.1 10^3/uL (0-0.2); Absolute Eosinophils 0.2 10^3/uL (0-0.7); Absolute Lymphocytes 1.5 10^3/uL (1.2-3.4); Absolute Monocytes 0.8 10^3/uL (0.1-0.6); Absolute Neutrophils 7.1 10^3/uL (1.4-6.5); Hematocrit 45.2 % (37.0-47.0); Mean Corp Hgb Conc. 33.2 g/dL (33.0-37.0); Mean Corpuscular Hgb 27.4 pg (27.0-31.0); Mean Corpuscular Volume 82.6 fL (81.0-99.0); Mean Platelet Volume 10.3 fL (7.4-10.4); Nucleated Red Blood Cells % 0 %; Platelet Count 214 10^3/uL (130-400); Red Blood Cell Count 5.47 10^6/uL (4.20-5.40); Red Cell Dist. Width 15.2 % (11.5-14.5); White Blood Cell Count 9.6 10^3/uL (4.8-10.8)
[2024-01-20 05:28] LABS: Blood Urea Nitrogen 12 mg/dl (7-17); Calcium 8.9 mg/dl (8.4-10.2); Carbon Dioxide 26 mmol/L (22-30); Chloride 101 mmol/L (98-107); Estimated Creatinine Clearance 62 ml/min; Glucose 160 mg/dl (70-99); Magnesium 1.7 mg/dl (1.6-2.3); Phosphorus 2.7 mg/dl (2.5-4.5); Potassium 3.5 mmol/L (3.5-5.1); Sodium 135 mmol/L (135-145); eGFR > 60.00
[2024-01-20] MEDS: VANCOCIN 275 MG IV (06:20)
[2024-01-20] MEDS: NSS (PRESERVATIVE FREE) 10 ML IV (08:23)
[2024-01-20] MEDS: ROBITUSSIN 100 MG PO ×4 (08:23→21:39)
[2024-01-20] MEDS: NEURONTIN 300 MG TUBE ×3 (08:23→21:40)
[2024-01-20] MEDS: PROTONIX IV 40 MG IV (08:23)
--- NOTE | 2024-01-20 08:45 | PTCARENOTE ---
Patient received from material handler 2nd shift. Patient resting comfortably in bed. AAOx2 but increasingly more alert, VSS. No events noted overnight. No complaints of pain or any grimacing. LR discontinued, continuing IV ABX. J-tube for nutrition and
medications. Tubefeed started yesterday, now at goal of 50mL/hr with 25mL/hr H2O flush.
Call vail in reach.
[2024-01-20] MEDS: KEPPRA 500 MG TUBE ×2 (10:51→21:40)
--- NOTE | 2024-01-20 12:06 | W.PN.HOSP.TC ---
Today's Communication/Plan
-
Continue antibiotics and monitor off oxygen
Repeat chest x-ray pending
Continue with tube feeds
Assessment / Plan
Assessment / Plan
pt is an 78 year old female
sepsis due to RLL Pneumonia/acute hypoxemic resp failure/acute TME--cont zosyn--off HI SOCO and now on 4L and on room air--cont to wean--treat fevers--COVID and flu neg--Aspiration precautions. Speech therapy evaluation. Repeat chest x-ray pending.
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 CT head with encephalomalacia in the right frontal lobe likely due to
old infarct. Severe periventricular small vessel disease. Severe atrophy.
Dysphagia�on tube feeds. Started on 01/18. Monitor for tolerance. IV fluid discontinued.
Micrococcus bacteremia likely contaminant- Follow culture data.
Chronic Atrial Fibrillation -Continue diltiazem with holding parameters -Not on chronic OAC as noted above.
Chronic HF- Unknown Type-Stable. No evidence of volume overload on exam-No on chronic diuretic therapy-Follow I/Os, daily weights, etc.
Seizure Disorder- Stable-Continue Keppra without changes.
DVT Prophylaxis: SCDs
Code Status: DNR
Updated daughter over the phone on 01/18.
Anticipated Discharge: 24 - 48 hours
Subjective/Interval History
-
Date of Service: January 20, 2024
Oxygen
Sats stable on room air
Awake
Tolerating tube feed so far
Objective Data
-
Labs:
Laboratory Results
01/20/24
04:46
WBC 9.6
Hgb 15.0
Hct 45.2
Plt Count 214
Sodium 135
Potassium 3.5
Chloride 101
Carbon Dioxide 26
BUN 12
Creatinine 0.3 L
Glucose 160 H
Calcium 8.9
Vital Signs:
Vital Signs
Temp Pulse Resp BP Pulse Ox
97.9 F 80 21 166/92 94
01/20/24 07:30 01/20/24 08:23 01/20/24 06:00 01/20/24 08:23 01/20/24 10:08
I&O
01/19/24 01/20/24 01/21/24
06:59 06:59 06:59
Intake Total 1575 / 1575 1979 / 1979
Output Total 825 / 825
Balance 1575 / 1575 1155 / 1155
Physical Exam
-
General: Well Developed, Well Nourished and No Apparent Distress
HEENT: Normocephalic and Atraumatic; Negative Oxygen
Respiratory: Wheezes; Negative Rhonchi
Cardiac: Regular Rhythm and S1/S2; Negative Murmur
GI: Soft, Nontender, Nondistended, Normal Bowel Sounds and Peg Tube
Musculoskeletal: No Clubbing, No Cyanosis and No Edema
Neuro: Awake; Negative Sedated
Psych: Calm
[2024-01-20] MEDS: MAGNESIUM SULFATE 100 IV (12:33)
--- NOTE | 2024-01-20 20:43 | PTCARENOTE ---
Received pt from rogelio RN. Pt is AAOx2 (time), left sided weakness (hx CVA), confused/forgetful, b/l foot drop. Afib w/ BBB, LE edema. On RA O2 sat 94%, lungs rhonchi/exp wheeze, tachypneic. TF Jevity 1.5 @ 50ml/hr through pt G tube. Incont x2,
pw in place. Mouth care and hygiene provided. Pt is laying comfortable in bed with call vail in reach.
[2024-01-21] VITALS (10 sets, daily range): BP systolic 142–187; BP diastolic 66–107; BMI 23.8
[2024-01-21] MEDS: ZOSYN 50 IV ×4 (02:11→19:56)
[2024-01-21 03:51] LABS: % Basophils 0.7 % (0-2); % Eosinophils 1.5 % (0-6); % Immature Granulocytes 0.2 % (0-0.5); % Lymphocytes 15.5 % (20.5-51.1); % Monocytes 4.8 % (1.7-9.3); % Neutrophils 77.3 % (42.2-75.2); Absolute Basophils 0.1 10^3/uL (0-0.2); Absolute Eosinophils 0.1 10^3/uL (0-0.7); Absolute Lymphocytes 1.4 10^3/uL (1.2-3.4); Absolute Monocytes 0.4 10^3/uL (0.1-0.6); Absolute Neutrophils 7.1 10^3/uL (1.4-6.5); Hematocrit 42.8 % (37.0-47.0); Hemoglobin 14.1 g/dL (12.0-16.0); Mean Corp Hgb Conc. 32.9 g/dL (33.0-37.0); Mean Platelet Volume 10.5 fL (7.4-10.4); Nucleated Red Blood Cells % 0 %; Platelet Count 250 10^3/uL (130-400); Red Blood Cell Count 5.22 10^6/uL (4.20-5.40); Red Cell Dist. Width 15.3 % (11.5-14.5); White Blood Cell Count 9.1 10^3/uL (4.8-10.8)
[2024-01-21 04:17] LABS: Blood Urea Nitrogen 10 mg/dl (7-17); Calcium 8.8 mg/dl (8.4-10.2); Carbon Dioxide 29 mmol/L (22-30); Chloride 100 mmol/L (98-107); Estimated Creatinine Clearance 62 ml/min; Glucose 142 mg/dl (70-99); Potassium 2.9 mmol/L (3.5-5.1); Sodium 137 mmol/L (135-145); eGFR > 60.00
[2024-01-21] MEDS: KCL ELIXIR 40 MEQ TUBE ×2 (04:36→08:43)
[2024-01-21] MEDS: ROBITUSSIN 100 MG PO ×4 (08:43→21:58)
[2024-01-21] MEDS: PROTONIX IV 40 MG IV (08:44)
[2024-01-21] MEDS: NSS (PRESERVATIVE FREE) 10 ML IV (08:44)
[2024-01-21] MEDS: CARDIZEM 60 MG TUBE ×3 (08:44→23:53)
[2024-01-21] MEDS: NEURONTIN 300 MG TUBE ×3 (08:44→21:58)
[2024-01-21 09:14] LABS: Magnesium 2.1 mg/dl (1.6-2.3); Phosphorus 3.1 mg/dl (2.5-4.5)
[2024-01-21] MEDS: KEPPRA 500 MG TUBE ×2 (10:04→21:59)
--- NOTE | 2024-01-21 11:43 | W.PN.HOSP.TC ---
Addendum entered and electronically signed by Brandon Lou MD 01/21/24 14:34:
Sebastian back from case management SNF does not have proper tube feeding equipment for today. DC postponed for tomorrow.
Original Note:
Today's Communication/Plan
-
replete kcl
po abx on dc
start dispo planning
Assessment / Plan
Assessment / Plan
pt is an 78 year old female
sepsis due to RLL Pneumonia/acute hypoxemic resp failure/acute TME--cont zosyn--off HI SOCO and now on 4L and on remains on room air. -treat fevers--COVID and flu neg--Aspiration precautions. Repeat CXR with Very small right pleural effusion.
Bibasilar subsegmental atelectatic changes.
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 CT head with encephalomalacia in the right frontal lobe likely due to
old infarct. Severe periventricular small vessel disease. Severe atrophy.
Dysphagia�on tube feeds. Started on 01/18. Monitor for tolerance. IV fluid discontinued.
Micrococcus bacteremia likely contaminant- Follow culture data.
Chronic Atrial Fibrillation -Continue diltiazem with holding parameters -Not on chronic OAC as noted above.
Chronic HF- Unknown Type-Stable. No evidence of volume overload on exam-No on chronic diuretic therapy-Follow I/Os, daily weights, etc.
Seizure Disorder- Stable-Continue Keppra without changes.
Hypokalemia-replete/monitor. Recheck labs.
DVT Prophylaxis: SCDs
Code Status: DNR
Updated daughter over the phone on 01/18 and 01/20
Anticipated Discharge: Today
Subjective/Interval History
-
Date of Service: January 21, 2024
Remains on room air
Afebrile
Watching TV
Feeding tube is left-sided
Tolerating tube feeds
Objective Data
-
Labs:
Laboratory Results
01/21/24 01/21/24
03:14 12:00
WBC 9.1
Hgb 14.1
Hct 42.8
Plt Count 250
Sodium 137
Potassium 2.9 L Pending
Chloride 100
Carbon Dioxide 29
BUN 10
Creatinine 0.3 L
Glucose 142 H
Calcium 8.8
Vital Signs:
Vital Signs
Temp Pulse Resp BP Pulse Ox
98.5 F 77 20 142/66 95
01/21/24 07:50 01/21/24 10:00 01/21/24 10:00 01/21/24 10:00 01/21/24 10:56
I&O
01/20/24 01/21/24 01/22/24
06:59 06:59 06:59
Intake Total 1979 / 1979 1890 / 1890 480 / 480
Output Total 825 / 825 800 / 800
Balance 1155 / 1155 1090 / 1090 480 / 480
Physical Exam
-
General: Well Developed, Well Nourished and No Apparent Distress
HEENT: Normocephalic and Atraumatic; Negative Oxygen
Respiratory: Decreased Breath Sounds; Negative Rhonchi
Cardiac: Regular Rhythm and S1/S2; Negative Murmur
GI: Soft, Nontender, Nondistended, Normal Bowel Sounds and Peg Tube
Musculoskeletal: No Clubbing, No Cyanosis and No Edema
Neuro: Awake and Other (Leading towards left side, left hemiparesis ); Negative Sedated
Psych: Calm
[2024-01-21 12:55] LABS: Potassium 4.3 mmol/L (3.5-5.1)
--- NOTE | 2024-01-21 16:00 | PTCARENOTE ---
Rec'd pt this AM. vital signs stable. Potassium improved. Inc of large amount of stool. Rectal trumpet in place and draining. TF in place.
--- NOTE | 2024-01-21 17:43 | PTCARENOTE ---
pt transferred from [facility] awake and alert, nods head approp. lung sounds diminished b/l on RA aft soft nt. Jevity 1.5TF continues at 50/hr. pt incont b&B rectal trumpet present. no edema weak PP B/L.
[2024-01-22] MEDS: ZOSYN 50 IV ×3 (01:54→13:11)
[2024-01-22 02:55] VITALS: BP 156/98
[2024-01-22 06:00] VITALS: BMI 23.0
[2024-01-22 06:44] LABS: % Basophils 0.7 % (0-2); % Eosinophils 2.7 % (0-6); % Immature Granulocytes 0.5 % (0-0.5); % Lymphocytes 16.7 % (20.5-51.1); % Neutrophils 73.4 % (42.2-75.2); Absolute Basophils 0.1 10^3/uL (0-0.2); Absolute Eosinophils 0.3 10^3/uL (0-0.7); Absolute Immature Granulocytes 0.1 10^3/uL (0-0.05); Absolute Lymphocytes 1.6 10^3/uL (1.2-3.4); Absolute Monocytes 0.6 10^3/uL (0.1-0.6); Hematocrit 43.9 % (37.0-47.0); Hemoglobin 14.5 g/dL (12.0-16.0); Mean Corpuscular Hgb 26.9 pg (27.0-31.0); Mean Corpuscular Volume 81.4 fL (81.0-99.0); Mean Platelet Volume 10.6 fL (7.4-10.4); Nucleated Red Blood Cells % 0 %; Platelet Count 264 10^3/uL (130-400); Red Blood Cell Count 5.39 10^6/uL (4.20-5.40); Red Cell Dist. Width 15.8 % (11.5-14.5); White Blood Cell Count 9.6 10^3/uL (4.8-10.8)
[2024-01-22 07:00] VITALS: BP 168/79
[2024-01-22 07:10] LABS: Blood Urea Nitrogen 11 mg/dl (7-17); Calcium 9.3 mg/dl (8.4-10.2); Carbon Dioxide 28 mmol/L (22-30); Chloride 100 mmol/L (98-107); Estimated Creatinine Clearance 62 ml/min; Glucose 111 mg/dl (70-99); Potassium 3.9 mmol/L (3.5-5.1); Sodium 136 mmol/L (135-145); eGFR > 60.00
[2024-01-22] MEDS: ROBITUSSIN 100 MG PO ×2 (08:28→13:11)
[2024-01-22] MEDS: CARDIZEM 60 MG TUBE (08:28)
[2024-01-22] MEDS: PROTONIX IV 40 MG IV (08:29)
[2024-01-22] MEDS: NEURONTIN 300 MG TUBE (08:29)
[2024-01-22] MEDS: NSS (PRESERVATIVE FREE) 10 ML IV (08:30)
--- NOTE | 2024-01-22 08:58 | W.PN.HOSP.TC ---
Today's Communication/Plan
-
Ok for DC to SNF today
Assessment / Plan
Assessment / Plan
pt is an 78 year old female
sepsis due to RLL Pneumonia/acute hypoxemic resp failure/acute TME-- off HI SOCO and now weaned to room air.
-afebrile since 01/17
-COVID and flu neg
Repeat CXR with Very small right pleural effusion. Bibasilar subsegmental atelectatic changes
--Aspiration precautions. .
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 CT head with encephalomalacia in the right frontal lobe likely due to old infarct. Severe
periventricular small vessel disease. Severe atrophy.
-tube feedings resumed
Dysphagia�on tube feeds. Started on 01/18. Monitor for tolerance. IV fluid discontinued.
Micrococcus bacteremia likely contaminant- Follow culture data.
Chronic Atrial Fibrillation -Continue diltiazem with holding parameters -Not on chronic OAC as noted above.
Chronic HF- Unknown Type-Stable. No evidence of volume overload on exam-No on chronic diuretic therapy-Follow I/Os, daily weights, etc.
Seizure Disorder- Stable-Continue Keppra without changes.
Hypokalemia-replete/monitor. Recheck labs.
DVT Prophylaxis: SCDs
Code Status: DNR
Updated daughter over the phone on 01/18 and 01/20
Anticipated Discharge: Today
Subjective/Interval History
-
Date of Service: January 22, 2024
non-responsive (baseline)
Objective Data
-
Labs:
Laboratory Results
01/22/24
06:09
WBC 9.6
Hgb 14.5
Hct 43.9
Plt Count 264
Sodium 136
Potassium 3.9
Chloride 100
Carbon Dioxide 28
BUN 11
Creatinine 0.3 L
Glucose 111 H
Calcium 9.3
Vital Signs:
Vital Signs
Temp Pulse Resp BP Pulse Ox
97.6 F 95 16 168/79 94
01/22/24 07:00 01/22/24 07:00 01/22/24 07:00 01/22/24 08:28 01/22/24 07:00
I&O
01/21/24 01/22/24 01/23/24
06:59 06:59 06:59
Intake Total 1890 / 1890 580 / 580
Output Total 800 / 800 800 / 800
Balance 1090 / 1090 -220 / -220
Review of Systems
-
Unable to obtain full review of systems at this time due to: Patient Non-verbal
History Source: Patient
Physical Exam
-
General: No Apparent Distress
HEENT: Normocephalic and Atraumatic; Negative Oxygen
Respiratory: Decreased Breath Sounds; Negative Rhonchi
Cardiac: Regular Rhythm and S1/S2; Negative Murmur
GI: Soft, Nontender, Nondistended, Normal Bowel Sounds and Peg Tube
Musculoskeletal: No Clubbing, No Cyanosis and No Edema
Neuro: Awake and Other (Leading towards left side, left hemiparesis, non-verbal ); Negative Sedated
Psych: Calm
Data Reviewed
-
Diagnostic Radiology: Report Reviewed by me
Labs: Labs Reviewed by me
[2024-01-22] MEDS: KEPPRA 500 MG TUBE (09:01)
--- NOTE | 2024-01-22 09:04 | W.DS.TRANS ---
DC Summary - [facility]
-
Discharge Instructions:
Discharge Diagnosis/Procedures Sepsis due to right lower lobe pneumonia
Acute hypoxic respiratory failure
Acute toxic metabolic encephalopathy
Micrococcus bacteremia likely contaminant
Hypokalemia
Diet Other diet
Additional Diets Jevity 1.5 at 50 cc/h with free water or per
your nutrition recommendation
Activity With assistance,As tolerated
Driving Restrictions No driving
Blood Work Repeat BMP in 3-5 with primary doctor
Instructions:
Stand-Alone Forms:
Changes to Home Medications: Yes
Discharge Medications:
DC Medications w/original date entered in [employer]
Lactobacillus acidophilus (Acidophilus chewable tablet) 1 tab feeding tube DAILY Gastrointestinal Issue 01/17/24
acetaminophen 160 mg/5 mL oral liquid 640 mg feeding tube Q6H PRN mild pain/temp>100F 01/17/24
atorvastatin 80 mg tablet 80 mg feeding tube HS High Cholesterol 01/17/24
balsam mahesh-zinc oxide topical ointment 1 ea topical BID Skin Issues 01/17/24
bisacodyl 10 mg rectal suppository (Dulcolax (bisacodyl)) 10 mg DE DAILY PRN if no bm x 3 days 01/17/24
calcium carbonate 600 mg feeding tube DAILY Supplement 01/17/24
diltiazem HCl 60 mg tablet 60 mg feeding tube Q8H Arrhythmia 01/17/24
ezetimibe 10 mg tablet (Zetia) 10 mg feeding tube HS High Cholesterol 01/17/24
gabapentin 300 mg capsule 300 mg feeding tube TID Pain 01/17/24
levetiracetam 500 mg feeding tube Q12H Seizures 01/17/24
loratadine 5 mg/5 mL oral solution 10 mg feeding tube DAILY Allergies 01/17/24
magnesium hydroxide 400 mg/5 mL oral suspension (Milk of Magnesia) 30 ml feeding tube HS PRN if no bm x 2 days 01/17/24
melatonin 3 mg tablet 3 mg feeding tube HS Sleep 01/17/24
nystatin 100,000 unit/gram topical powder 1 applic topical PRN PRN redness in groin 01/17/24
omeprazole 20 mg feeding tube QPM Gastrointestinal Issue 01/17/24
polyethylene glycol 3350 17 gram oral powder packet (Miralax) 17 g feeding tube DAILY PRN constipation 01/17/24
polyethylene glycol 3350 17 gram oral powder packet (Miralax) 17 g feeding tube Q48H Constipation 01/17/24
sodium phosphates 19 gram-7 gram/118 mL enema (Fleet Enema) 118 ml DE DAILY PRN if no bm x 4 days 01/17/24
amoxicillin 875 mg-potassium clavulanate 125 mg tablet 1 tab feeding tube BID Infection 7 days #5 tabs 01/22/24
Home Medication Changes
continue augmentin through 01/24/24
Pending Results: No
[2024-01-22 11:00] VITALS: BP 147/76
--- NOTE | 2024-01-22 12:38 | CM ---
Reviewed chart, patient medically cleared for discharge. Placed a call to Suze in admissions at [facility] who confirmed the ability to take patient back today # for report [phone] and fax# [phone]. Sent referral back through [facility] so
that she has clinical. Will complete medical necessity and transfer sheet for transfer back to [place].
Plan: Case management will continue to follow and assist with discharge planning. Back to [facility].
--- NOTE | 2024-01-22 13:23 | W.DCSUMMARY ---
Discharge Summary
Discharge Data
Date of Admission: 01/17/24
Date of Discharge: 01/22/24
-
Pending Results: No
Hospital Course
Discharging Physician : Dr. Jazmin Plummer
Disposition : SNF
Primary care physician : Dr. Balta Richardson
Principal Discharge diagnosis :
Sepsis due to right lower lobe pneumonia
Acute hypoxic respiratory failure
Acute toxic metabolic encephalopathy
Micrococcus bacteremia likely contaminant
Hypokalemia
Hospital Course :
Ms. 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 She
developed cough and congestion 2 days prior with outpatient CXR showing right lower lobe pneumonia, she was started on Augmentin and Azithromycin day of presentation (had one dose of each). Triage vitals significant for T 104. She was placed on
high flow to maintain SpO2 > 90%. Labs significant for WBC 14.5.
Patient was admitted to medicine and given IV Vancomycin and Zosyn. Flu and covid negative. Oxygen weaned down and she is on room air prior to discharge. Leukocytosis resolved. TF resumed. Antibiotics transitioned to Augmentin. She received 4.5
days of IV Zosyn in the hospital and instructed to continue 2.5 more days of Augmentin to complete a 7 day course.
1/ blood cultures returned positive for Micrococcus, suspect contaminant.
Time spent on discharge was 35 minutes.
Important imaging findings :
CXR
IMPRESSION:
Limited portable view of the chest.
Right base atelectasis/consolidation and pleural fluid. Similar to prior lung bases on abdomen CT 2 months ago. Increased stranding in the right perihilar region, findings suggest the possibility of early pneumonia.
Follow-up to clearing to exclude an occult process is recommended.
Procedure findings :
Discharge Plan
-
Patient Disposition: [facility]NF
Discharge Diagnosis/Procedures: Sepsis due to right lower lobe pneumonia
Acute hypoxic respiratory failure
Acute toxic metabolic encephalopathy
Micrococcus bacteremia likely contaminant
Hypokalemia
Condition: Fair
Diet: Other diet
Additional Diets: Jevity 1.5 at 50 cc/h with free water or per your nutrition recommendation
Activity: With assistance and As tolerated
Driving Restrictions: No driving
Blood Work: Repeat BMP in 3-5 with primary doctor
Referrals:
Balta Richardson MD [Family Provider] - in less than 1 week
Additional Discharge Medication Instructions: take Augmentin through 01/24/24 to complete a 7 day antibiotic course.
Prescriptions:
Continued
atorvastatin 80 mg Tablet
80 mg feeding tube HS
loratadine 5 mg/5 mL Solution
10 mg FEEDING TUBE DAILY
acetaminophen 160 mg/5 mL Liquid
640 mg feeding tube Q6H PRN (Reason: mild pain/temp>100F)
polyethylene glycol 3350 [Miralax] 17 gram Powder In Packet
17 g feeding tube DAILY PRN (Reason: constipation)
polyethylene glycol 3350 [Miralax] 17 gram Powder In Packet
17 g feeding tube Q48H
melatonin 3 mg Tablet
3 mg feeding tube HS
calcium carbonate 600 mg calcium (1,500 mg) Tablet
600 mg feeding tube DAILY
magnesium hydroxide [Milk of Magnesia] 400 mg/5 mL Suspension
30 ml FEEDING TUBE HS PRN (Reason: if no bm x 2 days)
bisacodyl [Dulcolax (bisacodyl)] 10 mg Suppository
10 mg [place] DAILY PRN (Reason: if no bm x 3 days)
Fleet Enema 19-7 gram/118 mL Enema
118 ml [place] DAILY PRN (Reason: if no bm x 4 days)
gabapentin 300 mg Capsule
300 mg feeding tube TID
nystatin 100,000 unit/gram Powder
1 applic TOPICAL PRN PRN (Reason: redness in groin)
diltiazem HCl 60 mg Tablet
60 mg feeding tube Q8H
ezetimibe [Zetia] 10 mg Tablet
10 mg feeding tube HS
Acidophilus Tablet,Chewable
1 tab feeding tube DAILY
balsam mahesh-zinc oxide Ointment
1 ea TOPICAL BID
Patient Comments:
apply to sacrum
levetiracetam 500 mg tablet
500 mg feeding tube Q12H
omeprazole 20 mg capsule
20 mg feeding tube QPM
amoxicillin-pot clavulanate 875-125 mg Tablet
1 tab FEEDING TUBE BID 7 Days Qty: 5 0RF
Rx Instructions:
TAKE THROUGH 01/24/24
Discharge Orders:
Discharge Patient (As Directed); Ordered 01/22/24
Ordered By: Jazmin Plummer
Discharge Date and Time
Print Language: MACANESE
== END 2024-01-22 14:58 | DRG 871 ==
LOC: 3 WEST ACU 21:04
PROVIDERS: Emergency Medicine; Hospitalist; Internal Medicine; ADMITTING PHYSICIAN Hospitalist; ATTENDING PHYSICIAN Student in an Organized Health Care Education/Training Program; EMERGENCY PHYSICIAN Emergency Medicine; FAMILY PHYSICIAN Family Medicine
PROC: 5A0935A Assistance with Respiratory Ventilation, Less than 24 Consecutive Hours, High Flow/Velocity Cannula (ICD-10-PCS; 2024-01-17)
DX: A41.9 Sepsis, unspecified organism (principal); G92.8 Other toxic encephalopathy; J96.01 Acute respiratory failure with hypoxia; J18.9 Pneumonia, unspecified organism; I48.20 Chronic atrial fibrillation, unspecified; J98.11 Atelectasis; I69.354 Hemiplegia and hemiparesis following cerebral infarction affecting left non-dominant side; I50.9 Heart failure, unspecified; I11.0 Hypertensive heart disease with heart failure; E78.5 Hyperlipidemia, unspecified; I25.10 Atherosclerotic heart disease of native coronary artery without angina pectoris; I45.10 Unspecified right bundle-branch block; I69.320 Aphasia following cerebral infarction; I69.398 Other sequelae of cerebral infarction; G40.909 Epilepsy, unspecified, not intractable, without status epilepticus; I69.391 Dysphagia following cerebral infarction; G62.9 Polyneuropathy, unspecified; E87.6 Hypokalemia; G93.89 Other specified disorders of brain; K21.9 Gastro-esophageal reflux disease without esophagitis; Z66 Do not resuscitate; Z11.52 Encounter for screening for COVID-19; Z88.1 Allergy status to other antibiotic agents
CPT/HCPCS: 36415; 70450; 71045; 80048; 80053; 82248; 83605; 83735; 84100; 84132; 85025; 85027; 87040; 87070; 87150; 87205; 87502; 87811; 93005; 96365; 96367; 99291

== ENCOUNTER 2024-02-22 13:51 | Emergency (ER) | payer MEDICARE, OTHER, SELFPAY ==
[2024-02-22] VITALS (8 sets, daily range): BP systolic 116–167; BP diastolic 97–124
--- NOTE | 2024-02-22 16:13 | ED.GENMED ---
History of Present Illness
<Thad Fernandez Jr., PA-C - Last Filed: 02/22/24 18:39>
General
Chief Complaint: Catheter/Tube Problem
Source: intermediate
Exam Limitations: non verbal-adult
Time Seen by Provider: 02/22/24 15:47
Nursing documentation reviewed up to this point in time: agreed with
Travel History
Have you had any contact with someone who has COVID-19?: Unable to Answer
Do you have any symptoms of coronavirus? Fever > 100 degrees, chills, cough, shortness of breath, sore throat, loss of taste or smell, muscle aches, or headache?: Unable to Answer
History of Present Illness
History of Present Illness:
78-year-old female with medical history of previous stroke seizures atrial fibrillation presenting to the emergency department with concerns of PEG tube malfunction and clogging since this morning missed all of her medications this morning as well.
They denied any additional symptoms.
Past History
<Thad Fernandez Jr., PA-C - Last Filed: 02/22/24 18:39>
Past History
ED Past Medical History: CAD
Review of Systems
<Thad Fernandez Jr., PA-C - Last Filed: 02/22/24 18:39>
Review of Systems
Allergies reviewed?: Yes
All Other Systems: ROS reviewed and negative except as documented in HPI and ROS
Phy Exam
<Thad Fernandez Jr., PA-C - Last Filed: 02/22/24 18:39>
Physical Exam
Physical Exam:
GENERAL: Alert , in no apparent distress
EYE: pupils equal and reactive
NECK: Supple, no significant adenopathy.
ENT: o/p clr, mmm.
CARDIAC: Regular rate and rhythm .
LUNGS: Clear breath sounds bilaterally, no acute respiratory distress, no wheezes/rales/rhonchi
ABDOMEN: Left-sided abdomen with PEG tube in place soft, without focal tenderness, no r/g, no cvat
NEUROLOGICAL: Alert and oriented, no focal neuro deficits
SKIN: Warm and dry, skin intact.
MUSCULOSKELETAL: No edema, well perfused.
PSYCH: Normal and appropriate interaction.
Course
<Thad Fernandez Jr., PA-C - Last Filed: 02/22/24 18:39>
Orders/Labs/Results
Orders:
Orders
02/22/24 17:44
CR Cont Inj Eval Tube(by Rad) Urgent
Comment:
Reason For Exam: G tube placement
02/22/24 17:50
Diltiazem [Cardizem] 90 mg TUBE NOW STA
Vital Signs
Initial and Last Documented VS:
Initial Vital Signs
BP Pulse Ox
167/109 94
02/22/24 13:56 02/22/24 13:56
Last Documented Vital Signs
Temp Pulse Resp BP Pulse Ox
98.1 F 124 20 116/100 94
02/22/24 13:58 02/22/24 18:15 02/22/24 18:00 02/22/24 18:00 02/22/24 15:00
<Juan Pablo South DO - Last Filed: 02/22/24 18:08>
Orders/Labs/Results
Orders:
Orders
02/22/24 17:44
CR Cont Inj Eval Tube(by Rad) Urgent
Comment:
Reason For Exam: G tube placement
02/22/24 17:50
Diltiazem [Cardizem] 90 mg TUBE NOW STA
Vital Signs
Initial and Last Documented VS:
Initial Vital Signs
BP Pulse Ox
167/109 94
02/22/24 13:56 02/22/24 13:56
Last Documented Vital Signs
Temp Pulse Resp BP Pulse Ox
98.1 F 124 20 116/100 94
02/22/24 13:58 02/22/24 18:15 02/22/24 18:00 02/22/24 18:00 02/22/24 15:00
Procedures
<Thad Fernandez Jr., PA-C - Last Filed: 02/22/24 18:39>
Other
Indication for procedure:: PEG tube blockage malfunction
Procedure completed by: Myself
Consent form signed: No
If no, reason: Emergency procedure
Additional Procedure:
Patient had a PEG tube that was not functioning properly at intermediate was sent in for replacement. This was replaced here without incident 20 [place] was placed. Irrigating well confirmed by [facility].
<Thad Fernandez Jr., PA-C - Last Filed: 02/22/24 18:39>
MDM/Problems Addressed
MDM/Problems Addressed:
78-year-old female presenting to the emergency department today with concerns of clogged PEG tube. This was removed and new PEG tube placed. Patient of note was slightly tachycardic did miss 2 doses of diltiazem during her ER stay was given dose
of diltiazem adi. Otherwise patient has appeared well throughout ER stay afebrile suspect slight elevation of heart rate which was mainly in the 110s is due to missed AV liliana. Patient peers stable for discharge return precautions given.
<Thad Fernandez Jr., PA-C - Last Filed: 02/22/24 18:39>
*Critical Care Note
Total Time (30-74mins, 75-104mins- exclusive of procedures): Not Applicable
ED Attending Note
<Thad Fernandez Jr., PA-C - Last Filed: 02/22/24 18:39>
-
Portions of this chart may have been created with voice recognition software.� Occasional wrong word or��sound alike� substitutions may have occurred due to the inherent limitations of voice recognition software.
<Juan Pablo South, DO - Last Filed: 02/22/24 18:08>
ED Attending Note
Patient seen and examined by attending physician: Yes
I performed the substantive portion of visit, reviewed & personally made and approve the management plan that is documented in note by myself or FREDDY.: Yes
Discharge Plan
Departure
Patient Disposition: Home (Routine Discharge)
Date of Disposition: 02/22/24
Time of Disposition: 18:37
Patient with high blood pressure during this ER visit?: No
Condition: Good
Covid-19: Not Applicable
Discharge Problem:
Gastrostomy tube dysfunction
Instructions: How to Care for Your Gastrostomy Tube
Prescriptions:
No Action
atorvastatin 80 mg Tablet
80 mg feeding tube HS
loratadine 5 mg/5 mL Solution
10 mg FEEDING TUBE DAILY
polyethylene glycol 3350 [Miralax] 17 gram Powder In Packet
17 g feeding tube DAILY PRN (Reason: constipation)
melatonin 3 mg Tablet
3 mg feeding tube HS
calcium carbonate 600 mg calcium (1,500 mg) Tablet
600 mg feeding tube DAILY
magnesium hydroxide [Milk of Magnesia] 400 mg/5 mL Suspension
30 ml FEEDING TUBE HS PRN (Reason: if no bm x 2 days)
bisacodyl [Dulcolax (bisacodyl)] 10 mg Suppository
10 mg [place] DAILY PRN (Reason: if no bm x 3 days)
Fleet Enema 19-7 gram/118 mL Enema
118 ml MA DAILY PRN (Reason: if no bm x 4 days)
gabapentin 300 mg Capsule
300 mg feeding tube TID
nystatin 100,000 unit/gram Powder
1 applic TOPICAL PRN PRN (Reason: redness in groin)
diltiazem HCl 60 mg Tablet
60 mg feeding tube Q8H
ezetimibe [Zetia] 10 mg Tablet
10 mg feeding tube HS
Acidophilus Tablet,Chewable
1 tab feeding tube DAILY
balsam mahesh-zinc oxide Ointment
1 ea TOPICAL BID
Patient Comments:
apply to sacrum
levetiracetam 500 mg tablet
500 mg feeding tube Q12H
omeprazole 20 mg capsule
20 mg feeding tube QPM
acetaminophen 325 mg Tablet
650 mg FEEDING TUBE Q6H PRN (Reason: mild pain/temp>100F)
Referrals:
Balta Richardson MD [Family Provider] -
Activity Restrictions/Additional Instructions:
Isaura came to the emergency department for a G-tube malfunction. A new G-tube was placed which is 20 [place] in size. This was confirmed by x-ray. Otherwise she did miss a dose of diltiazem she was given an additional dose of diltiazem here at
1800 return for any worsening, new or concerning symptoms.
Interventions
Interventions:
*Risk Screen - Suicide Last Done: 02/22/24 14:01
*General Assessment Last Done: 02/22/24 14:01
*Neglect/Abuse Screening Last Done: 02/22/24 14:01
*ED COVID-19 Vaccine History Last Done: 02/22/24 14:01
GA-Ixzxdb-Mwradhpgwc Assessment Last Done: 02/22/24 14:02
ED-Female Genitourinary Assessment Last Done: 02/22/24 14:02
Discharge Date and Time
Print Language: KENYAN
[2024-02-22] MEDS: CARDIZEM 90 MG TUBE (18:08)
== END 2024-02-22 21:03 | disposition home or self-care (01) ==
LOC: EMR 13:51
PROVIDERS: EMERGENCY PHYSICIAN Emergency Medicine; FAMILY PHYSICIAN Family Medicine
DX: G40.909 Epilepsy, unspecified, not intractable, without status epilepticus (principal); I25.10 Atherosclerotic heart disease of native coronary artery without angina pectoris; I48.91 Unspecified atrial fibrillation; K94.23 Gastrostomy malfunction; Z86.73 Personal history of transient ischemic attack (TIA), and cerebral infarction without residual deficits
CPT/HCPCS: 99283; 43762; 49465

== ENCOUNTER → 2024-06-14 10:35 | Outpatient (REF) | payer MEDICARE, OTHER, SELFPAY ==
[2024-06-16 03:21] LABS: Keppra (Levetiracetam) 21 ug/mL (10-40)
== END ==
LOC: OLABWHC 10:35
PROVIDERS: ATTENDING PHYSICIAN Family Medicine
DX: R56.9 Unspecified convulsions (principal); S09.90XA Unspecified injury of head, initial encounter
CPT/HCPCS: 80177

== ENCOUNTER → 2024-07-22 13:11 | Outpatient (REF) | payer MEDICARE, OTHER, SELFPAY ==
[2024-07-22 13:48] LABS: Hematocrit 43.8 % (37.0-47.0); Hemoglobin 14.4 g/dL (12.0-16.0); Mean Corp Hgb Conc. 32.9 g/dL (33.0-37.0); Mean Corpuscular Hgb 28.5 pg (27.0-31.0); Mean Corpuscular Volume 86.7 fL (81.0-99.0); Mean Platelet Volume 11.1 fL (7.4-10.4); Platelet Count 316 10^3/uL (130-400); Red Blood Cell Count 5.05 10^6/uL (4.20-5.40); Red Cell Dist. Width 14.5 % (11.5-14.5); White Blood Cell Count 10.1 10^3/uL (4.8-10.8)
[2024-07-22 14:02] LABS: Blood Urea Nitrogen 22 mg/dl (7-17); Calcium 9.1 mg/dl (8.4-10.2); Carbon Dioxide 25 mmol/L (22-30); Chloride 99 mmol/L (98-107); Glucose 133 mg/dl (70-99); Potassium 4.5 mmol/L (3.5-5.1); Sodium 137 mmol/L (135-145); eGFR > 60.00
== END ==
LOC: OLABWHC 13:11
PROVIDERS: ATTENDING PHYSICIAN Family Medicine
DX: I48.20 Chronic atrial fibrillation, unspecified (principal); I50.9 Heart failure, unspecified
CPT/HCPCS: 36415; 80048; 85027

== ENCOUNTER → 2025-01-02 12:14 | Outpatient (REF) | payer MEDICARE, OTHER, SELFPAY ==
[2025-01-02 12:33] LABS: % Basophils 0.8 % (0-2); % Eosinophils 1.6 % (0-6); % Immature Granulocytes 0.5 % (0-0.5); % Lymphocytes 15.3 % (20.5-51.1); % Monocytes 6.8 % (1.7-9.3); Absolute Basophils 0.1 10^3/uL (0-0.2); Absolute Eosinophils 0.2 10^3/uL (0-0.7); Absolute Immature Granulocytes 0.1 10^3/uL (0-0.05); Absolute Lymphocytes 1.6 10^3/uL (1.2-3.4); Absolute Monocytes 0.7 10^3/uL (0.1-0.6); Absolute Neutrophils 7.9 10^3/uL (1.4-6.5); Hemoglobin 15.1 g/dL (12.0-16.0); Mean Corp Hgb Conc. 32.8 g/dL (33.0-37.0); Mean Corpuscular Hgb 28.8 pg (27.0-31.0); Mean Corpuscular Volume 87.8 fL (81.0-99.0); Mean Platelet Volume 10.9 fL (7.4-10.4); Nucleated Red Blood Cells % 0 %; Platelet Count 296 10^3/uL (130-400); Red Blood Cell Count 5.24 10^6/uL (4.20-5.40); Red Cell Dist. Width 14.9 % (11.5-14.5); White Blood Cell Count 10.5 10^3/uL (4.8-10.8)
[2025-01-02 12:42] LABS: ALT (SGPT) 20 U/L (0-35); AST (SGOT) 21 U/L (14-36); Albumin 3.3 g/dl (3.5-5.0); Alkaline Phosphatase 131 U/L (38-126); Blood Urea Nitrogen 18 mg/dl (7-17); Carbon Dioxide 29 mmol/L (22-30); Chloride 102 mmol/L (98-107); Glucose 120 mg/dl (70-99); HDL Cholesterol 34 mg/dl; LDL Cholesterol, Calculated 65 mg/dl; Potassium 4.2 mmol/L (3.5-5.1); Sodium 138 mmol/L (135-145); Total Bilirubin 0.6 mg/dl (0.2-1.3); Total Cholesterol 122 mg/dl (50-199); Total Protein 6.2 g/dl (6.3-8.2); Triglyceride 116 mg/dl (10-149); Very Low Density Lipoprotein 23 mg/dl (0-30); eGFR > 60.00
[2025-01-02 12:45] LABS: Depakane < 10.0 ug/ml (50.0-120.0)
[2025-01-02 12:58] LABS: Free T4 1.51 ng/dl (0.78-2.19)
[2025-01-02 13:13] LABS: TSH 3.09 uIU/ml (0.47-4.68)
== END ==
LOC: OLABWHC 12:14
PROVIDERS: ATTENDING PHYSICIAN Family Medicine
DX: I10 Essential (primary) hypertension (principal); R56.9 Unspecified convulsions; I63.9 Cerebral infarction, unspecified; I50.9 Heart failure, unspecified; E78.5 Hyperlipidemia, unspecified
CPT/HCPCS: 36415; 80053; 80061; 80164; 84439; 84443; 85025

== ENCOUNTER → 2025-01-20 09:34 | Outpatient (REF) | payer MEDICARE, OTHER, SELFPAY ==
[2025-01-20 11:16] LABS: Hematocrit 45.1 % (37.0-47.0); Hemoglobin 15.2 g/dL (12.0-16.0); Mean Corp Hgb Conc. 33.7 g/dL (33.0-37.0); Mean Corpuscular Hgb 29.2 pg (27.0-31.0); Mean Corpuscular Volume 86.7 fL (81.0-99.0); Mean Platelet Volume 11.2 fL (7.4-10.4); Platelet Count 254 10^3/uL (130-400); Red Cell Dist. Width 14.6 % (11.5-14.5); White Blood Cell Count 12.7 10^3/uL (4.8-10.8)
[2025-01-20 12:03] LABS: Blood Urea Nitrogen 20 mg/dl (7-17); Calcium 9.1 mg/dl (8.4-10.2); Carbon Dioxide 27 mmol/L (22-30); Chloride 99 mmol/L (98-107); Glucose 106 mg/dl (70-99); Potassium 4.2 mmol/L (3.5-5.1); Sodium 138 mmol/L (135-145); eGFR > 60.00
== END ==
LOC: OLABWHC 09:34
PROVIDERS: ATTENDING PHYSICIAN Family Medicine
DX: I48.20 Chronic atrial fibrillation, unspecified (principal); I50.9 Heart failure, unspecified
CPT/HCPCS: 36415; 80048; 85027

== ENCOUNTER 2025-09-13 21:11 | Emergency (ER) | payer MEDICARE, OTHER, SELFPAY ==
[2025-09-13 21:15] VITALS: BP 125/87
--- NOTE | 2025-09-13 22:35 | ED.GENMED ---
History of Present Illness
General
Chief Complaint: Catheter/Tube Problem
Time Seen by Provider: 09/13/25 21:36
History of Present Illness
History of Present Illness:
79-year-old female with history of seizure disorder and CVA, nonverbal with hemiparesis, presenting to the emergency department for PEG tube clogged. Patient arrives from facility, with PEG tube malfunctioning. PEG tube last changed in the
emergency department in February 2025. Patient is currently on hospice. No additional history obtained at this time
Past History
Past History
ED Past Medical History: CAD
Phy Exam
Physical Exam
Physical Exam:
General: No acute distress
HEENT: protecting airway
Neck: appears supple
CV: Normal heart rate
Resp: No accessory muscle use, no increased work of breathing
Abd: Soft and non-distended, PEG tube in place without surrounding drainage or erythema
Extremities: No deformities, no swelling
Neuro: Nonverbal, left hemiparesis
: deferred
Rectal: deferred
Psych: Normal affect
Skin: Intact
Course
Orders/Labs/Results
Orders:
Orders
09/13/25 21:43
Tube Check [CR Cont Inj Eval Tube(by Rad)] Urgent
Comment:
Reason For Exam: PEG tube replacement
Vital Signs
Initial and Last Documented VS:
Initial Vital Signs
Pulse Ox
94
09/13/25 21:14
Last Documented Vital Signs
Temp Pulse Resp BP Pulse Ox
97.8 F 75 16 125/87 96
09/13/25 21:15 09/13/25 21:15 09/13/25 21:15 09/13/25 21:15 09/13/25 22:36
MDM/Problems Addressed
MDM/Problems Addressed:
79-year-old female with history of CVA and seizure disorder with PEG tube dependence presenting for PEG tube malfunction. Vital signs normal.
On exam patient is resting comfortably, no acute distress. PEG tube was replaced at bedside by myself, without incident. 20 [place]. Confirmed by x-ray imaging. Feel stable for discharge. Will provide transportation back to facility.
*Pulse Oximetry
SaO2: 96
Oxygen Mode of Delivery: Room air
Patient hypoxic: no
*Critical Care Note
Total Time (30-74mins, 75-104mins- exclusive of procedures): Not Applicable
ED Attending Note
-
Portions of this chart may have been created with voice recognition software.� Occasional wrong word or��sound alike� substitutions may have occurred due to the inherent limitations of voice recognition software.
Discharge Plan
Departure
Prescriptions:
No Action
atorvastatin 80 mg Tablet
80 mg feeding tube HS
loratadine 5 mg/5 mL Solution
10 mg FEEDING TUBE DAILY
polyethylene glycol 3350 [Miralax] 17 gram Powder In Packet
17 g feeding tube DAILY PRN (Reason: constipation)
melatonin 3 mg Tablet
3 mg feeding tube HS
calcium carbonate 600 mg calcium (1,500 mg) Tablet
600 mg feeding tube DAILY
magnesium hydroxide [Milk of Magnesia] 400 mg/5 mL Suspension
30 ml FEEDING TUBE HS PRN (Reason: if no bm x 2 days)
bisacodyl [Dulcolax (bisacodyl)] 10 mg Suppository
10 mg [place] DAILY PRN (Reason: if no bm x 3 days)
Fleet Enema 19-7 gram/118 mL Enema
118 ml CA DAILY PRN (Reason: if no bm x 4 days)
gabapentin 300 mg Capsule
300 mg feeding tube TID
nystatin 100,000 unit/gram Powder
1 applic TOPICAL PRN PRN (Reason: redness in groin)
diltiazem HCl 60 mg Tablet
60 mg feeding tube Q8H
ezetimibe [Zetia] 10 mg Tablet
10 mg feeding tube HS
Acidophilus Tablet,Chewable
1 tab feeding tube DAILY
balsam mahseh-zinc oxide Ointment
1 ea TOPICAL BID
Patient Comments:
apply to sacrum
levetiracetam 500 mg tablet
500 mg feeding tube Q12H
omeprazole 20 mg capsule
20 mg feeding tube QPM
acetaminophen 325 mg Tablet
650 mg FEEDING TUBE Q6H PRN (Reason: mild pain/temp>100F)
Referrals:
UNKNOWN - PT DOES,NOT KNOW [Family Provider]
Interventions
Interventions:
*Risk Screen - Suicide Last Done: 09/13/25 21:15
*General Assessment Last Done: 09/13/25 21:15
*Neglect/Abuse Screening Last Done: 09/13/25 21:15
*ED COVID-19 Vaccine History Last Done: 09/13/25 21:15
*ED Influenza Vaccine History Last Done: 09/13/25 21:15
[facility] Fall Risk Assessment Tool Last Done: 09/13/25 21:15
Discharge Date and Time
Print Language: GRENADIAN
== END 2025-09-14 00:36 | disposition home or self-care (01) ==
LOC: EMR 21:11
PROVIDERS: EMERGENCY PHYSICIAN Student in an Organized Health Care Education/Training Program
DX: T85.598A Other mechanical complication of other gastrointestinal prosthetic devices, implants and grafts, initial encounter (principal); Y73.2 Prosthetic and other implants, materials and accessory gastroenterology and urology devices associated with adverse incidents; I25.10 Atherosclerotic heart disease of native coronary artery without angina pectoris; G40.909 Epilepsy, unspecified, not intractable, without status epilepticus; I69.354 Hemiplegia and hemiparesis following cerebral infarction affecting left non-dominant side; I69.320 Aphasia following cerebral infarction
CPT/HCPCS: 99282; 43762; 49465